=== PATIENT | male | born 1955 | race Caucasian/White ===

== ENCOUNTER 2018-11-05 22:38 | Inpatient (IN) | payer BC, OTHER ==
[~2018-11-05] VITALS: Ht 185.4 cm; Wt 120.7 kg
[2018-11-05] MEDS ORDERED: predniSONE 20 MG TAB PO STA (23:08)
[2018-11-05] MEDS ORDERED: RT-ALBUTEROL/IPRATROPIUM 3 ML (DUONEB) VIAL INH STA (23:08)
--- NOTE | 2018-11-05 23:10 | ED Cough/URI ---
General Chief Complaint: Respiratory Problems Stated Complaint: CONGESTION, SOB, HISTORY OF PE History of Present Illness Date Seen by Provider: Nov 05, 2018 Time Seen by Provider: 22:59 This is a 63-year-old man with a history of pulmonary embolus on Coumadin here for a cough. Last night he started to have some postnasal drip, overnight he started to have a sore throat. He then developed a cough today with some wheezing and shortness of breath. No chest or back pain. No lightheadedness or nausea or diaphoresis. No leg swelling. No hemoptysis. No fever or chills. No myalgias. No headache. Allergies and Home Medications Allergies Coded Allergies: No Known Drug Allergies (Unverified , 11/05/18) Home Medications Lisinopril/Hydrochlorothiazide 1 Each Tablet, 1 EACH PO DAILY, (Reported) Simvastatin 10 Mg Tablet, 10 MG PO DAILY, (Reported) Warfarin Sodium 5 Mg Tablet, 5 MG PO UD, (Reported) Warfarin Sodium 2.5 Mg Tablet, 2.5 MG PO UD, (Reported) Patient Home Medication List Home Medication List Reviewed: Yes Review of Systems Review of Systems Constitutional: no symptoms reported EENTM: see HPI Respiratory: see HPI Cardiovascular: no symptoms reported Gastrointestinal: no symptoms reported Genitourinary: no symptoms reported Musculoskeletal: no symptoms reported Skin: no symptoms reported Psychiatric/Neurological: No Symptoms Reported Hematologic/Lymphatic: No Symptoms Reported Immunological/Allergic: no symptoms reported Past Glzrbpf-Mofwub-Eznxgn Hx Patient Social History Recent Foreign Travel: No Contact w/Someone Who Travel: No Physical Exam Vital Signs - First Documented 11/05/18 11/05/18 22:45 22:47 Temp 97.2 Pulse 116 Resp 22 B/P (MAP) 157/83 (107) Pulse Ox 90 O2 Delivery Room Air O2 Flow Rate 2.00 FiO2 93 Capillary Refill : Height: '" Weight: lbs. oz. kg; BMI Method: General Appearance: no apparent distress HEENT: other (moist mucous membranes, pharynx mildly erythematous without edema or exudate) Neck: supple Respiratory: other (good air exchange with moderate bilateral expiratory wheezes) Cardiovascular: normal peripheral pulses, regular rate, rhythm, no edema Gastrointestinal: non tender, soft Neurologic/Psychiatric: no motor/sensory deficits, alert, normal mood/affect, oriented x 3; No abnormal gait Skin: warm/dry Progress/Results/Core Measures Suspected Sepsis SIRS Temperature: Pulse: Respiratory Rate: Laboratory Tests 11/05/18 23:25: White Blood Count 9.3 Blood Pressure / Mean: Laboratory Tests 11/05/18 23:07: Creatinine 0.77, Total Bilirubin 1.2H 11/05/18 23:25: INR Comment 2.1H, Platelet Count 188 Results/Orders Lab Results Laboratory Tests Test 11/05/18 23:07 11/05/18 23:25 11/06/18 04:26 Range/Units Sodium Level 139 135-145 MMOL/L Potassium Level 4.2 3.6-5.0 MMOL/L Chloride Level 103 98-107 MMOL/L Carbon Dioxide Level 22 21-32 MMOL/L Anion Gap 14 5-14 MMOL/L Blood Urea Nitrogen 13 7-18 MG/DL Creatinine 0.77 0.60-1.30 MG/DL Estimat Glomerular Filtration Rate > 60 BUN/Creatinine Ratio 17 Glucose Level 119 H 70-105 MG/DL Calcium Level 8.7 8.5-10.1 MG/DL Corrected Calcium 8.5 8.5-10.1 MG/DL Total Bilirubin 1.2 H 0.1-1.0 MG/DL Aspartate Amino Transf (AST/SGOT) 21 5-34 U/L Alanine Aminotransferase (ALT/SGPT) 20 0-55 U/L Alkaline Phosphatase 99 40-136 U/L Troponin T 24 H <=15 NG/L Pro-B-Type Natriuretic Peptide 169.5 H <75.0 PG/ML Total Protein 7.3 6.4-8.2 GM/DL Albumin 4.3 3.2-4.5 GM/DL White Blood Count 9.3 4.3-11.0 10^3/uL Red Blood Count 5.54 4.35-5.85 10^6/uL Hemoglobin 15.5 13.3-17.7 G/DL Hematocrit 48 40-54 % Mean Corpuscular Volume 87 80-99 FL Mean Corpuscular Hemoglobin 28 25-34 PG Mean Corpuscular Hemoglobin Concent 32 32-36 G/DL Red Cell Distribution Width 12.9 10.0-14.5 % Platelet Count 188 130-400 10^3/uL Mean Platelet Volume 9.2 7.4-10.4 FL Prothrombin Time 23.7 H 12.2-14.7 SEC INR Comment 2.1 H 0.8-1.4 Activated Partial Thromboplast Time 34 24-35 SEC My Orders Orders - SHANNEN CASEY DO Ekg Tracing (11/05/18 22:51) Comprehensive Metabolic Panel (11/05/18 22:51) Protime With Inr (11/05/18 22:51) Partial Thromboplastin Time (11/05/18 22:51) O2 (11/05/18 22:51) Monitor-Rhythm Ecg Trace Only (11/05/18 22:51) Saline Lock/Iv-Start (11/05/18 22:51) Cbc No Diff (11/05/18 22:51) Troponin T (11/05/18 22:51) Probnp Fs (11/05/18 22:51) Chest Pa/Lat (2 View) (11/05/18 22:51) Albuterol/Ipra Inhalation Soln (Duoneb I (11/05/18 23:08) Prednisone Tablet (Deltasone Tablet) (11/05/18 23:08) Svn Small Volume Nebulizer (11/05/18 23:08) Levofloxacin 750 Mg/150 Ml Iv (Levaquin (11/05/18 23:58) Ct Angio Chest W (11/06/18 00:55) Iopamidol 61% Injection (Isovue 300 61% (11/06/18 01:00) Sodium Chloride Flush (Catheter Flush Sy (11/06/18 01:00) Acetaminophen Tablet (Tylenol Tablet) (11/06/18 01:42) Albuterol Pre-Mix Nebs (Rt) (Proventil (11/06/18 01:49) Svn Small Volume Nebulizer (11/06/18 01:49) Troponin T (11/06/18 04:15) Ekg Tracing (11/06/18 04:15) Influenza A And B Antigens (11/06/18 04:56) Medications Given in ED Current Medications Medications Dose Ordered Sig/Roseline Route Start Time Stop Time Status Last Admin Dose Admin Iopamidol 50 ml ONCE ONCE IV 11/06/18 01:00 11/06/18 01:38 DC 11/06/18 01:18 50 ML Sodium Chloride 10 ml NEEDED PRN IV 11/06/18 01:00 11/06/18 01:20 10 ML Vital Signs/I&O 11/05/18 11/05/18 22:45 22:47 Temp 97.2 Pulse 116 Resp 22 B/P (MAP) 157/83 (107) Pulse Ox 90 O2 Delivery Room Air Nasal Cannula O2 Flow Rate 2.00 FiO2 93 Capillary Refill : Progress Note #1: Progress Note This is a 63-year-old man with a history of PE on Coumadin here for a cough. He has audible wheezing. He does have a history of childhood asthma. We will treat with bronchodilators and steroids. He is otherwise in no acute distress. He has no other symptoms that suggest pulmonary embolus. He was mildly hypoxic on room air but this improves with nasal cannula oxygen. We will obtain ECG, chest x-ray , labs including a troponin and BNP. We will continue to monitor patient. Progress Note #2: Progress Note INR is therapeutic. There is persistent tachycardia and mild hypoxia which, despite history which is not suggestive, was concerning for possible superimposed pulmonary embolus and a CT angiogram was obtained. Showed no central pulmonary embolus although contrast was reportedly mistimed. Patient was given a second albuterol nebulizer treatment. He was feeling improvement in his breathing. We will continue to monitor. Progress Note #3: Progress Note Pt and his are concerned re: insurance covering hospital stay, there are certain hospitals they believe are not covered, they believe is ok. I attempted to call their insurance company for them but offices are closed. I also asked transfer station operator to see if she could find out for sure. In the meantime pt is having persistent hypoxia with SpO2 on RA down to 88%, HR still 127 at this time, BP 117/70, I do feel transport should not be delayed further and pt and his are agreeable. He is in NAD and lungs are clear. BNP is elevated but no obvious signs of volume overload and BP low normal so I am deferring diuresis at this time. Pt will likely benefit from hospitalization in order to have echocardiogram and cardiology consult to determine extent of contribution to presentation from cardiac etiology and to guide further therapy. Progress Note #4: Progress Note [facility] called to notify us that a bed became available. This is patient's preference. Patient was accepted for transfer by Dr. Corrales at approximately 4:40 AM. ECG EKG : Comment 20/11/16: Sinus tachycardia rate of 114. Possible left atrial enlargement. Right bundle branch block. Diagnostic Imaging Diagonstic Imaging: Xray Comments EP interpretation: Trachea is midline allowing for mild rotation. Cardiomediastinal silhouette is within normal limits, diaphragmatic borders are sharp. No obvious bony abnormalities. No pneumothoraces. The interstitium appears prominent, with central vascular congestion. Reviewed: Reviewed by Me Departure Impression Primary Impression: Hypoxia Additional Impressions: Wheezing Elevated brain natriuretic peptide (BNP) level Elevated troponin Coronary artery disease Qualified Codes: I25.10 - Atherosclerotic heart disease of [place] coronary artery without angina pectoris; I25.84 - Coronary atherosclerosis due to calcified coronary lesion Disposition: XFER SHT-TRM HOSP Condition: Stable (guarded) Transfer Time Spoke to Accepting Phy: 04:40 Transfer Facility: [facility], accepted by Dr. Corrales Method of Transfer: EMS Departure-Patient Inst. Referrals: RITA RADFORD (PCP) Primary Care Physician SHANNEN CASEY DO Nov 05, 2018 23:10
[2018-11-05] MEDS ORDERED: WARF5TAB PO (23:37)
[2018-11-05] MEDS ORDERED: SIMV10TA3 PO (23:37)
[2018-11-05] MEDS ORDERED: LISI1TAB6 PO (23:37)
[2018-11-05] MEDS ORDERED: WARF2.5T82 PO (23:37)
[2018-11-05 23:51] LABS: ALANINE AMINOTRANSFERASE 20 U/L (0-55); ALBUMIN 4.3 GM/DL (3.2-4.5); ALKALINE PHOSPHATASE 99 U/L (40-136); BILIRUBIN,TOTAL 1.2 MG/DL (0.1-1.0); BUN/CREATININE RATIO 17; CALCIUM 8.7 MG/DL (8.5-10.1); CARBON DIOXIDE 22 MMOL/L (21-32); CHLORIDE 103 MMOL/L (98-107); CREATININE SERUM 0.77 MG/DL (0.60-1.30); GFR ESTIMATED > 60; GLUCOSE 119 MG/DL (70-105); POTASSIUM 4.2 MMOL/L (3.6-5.0); SODIUM 139 MMOL/L (135-145); TOTAL PROTEIN 7.3 GM/DL (6.4-8.2)
[2018-11-05 23:54] LABS: INR 2.1 (0.8-1.4); PROTHROMBIN TIME PATIENT 23.7 SEC (12.2-14.7)
[2018-11-05] MEDS ORDERED: LEVOFLOXACIN 750 MG/150 ML IV 150 ML IV STA (23:58)
[2018-11-06 00:04] LABS: WHITE BLOOD COUNT 9.3 10^3/uL (4.3-11.0)
[2018-11-06 00:05] LABS: HEMOGLOBIN 15.5 G/DL (13.3-17.7); MEAN PLATELET VOLUME 9.2 FL (7.4-10.4); RED CELL DISTRIBUTION WIDTH 12.9 % (10.0-14.5)
[2018-11-06] MEDS ORDERED: IOPAMIDOL 61% 100 ML (ISOVUE 300) VIAL IV ONE (01:00)
[2018-11-06] MEDS ORDERED: CATHETER FLUSH 10 ML SYR IV PRN (01:00)
[2018-11-06] MEDS ORDERED: ACETAMINOPHEN 500 MG TAB (TYLENOL) PO STA (01:42)
[2018-11-06] MEDS ORDERED: RT-ALBUTEROL SULF 2.5 MG/3 ML PRE-MIX VIAL INH STA (01:49)
--- NOTE | 2018-11-06 06:11 | NUR ---
Report called to Fany WILSON
--- NOTE | 2018-11-06 06:18 | NUR ---
[facility] leaves with patient.
--- NOTE | 2018-11-06 06:33 | Diagnostic Imaging Report ---
EXAMINATION: Chest, frontal and lateral views. INDICATION: Dry cough and wheezing. COMPARISON: None available. FINDINGS: The lungs are clear. There is prominence of the central pulmonary vasculature, without overt edema. The cardiomediastinal silhouette is normal. No pneumothorax or pleural effusion. No acute osseous abnormality. IMPRESSION: No acute chest disease. Dictated by: Dictated on workstation # [id number]
--- NOTE | 2018-11-06 07:05 | NUR ---
MAYELIN WOLF admitted to room 430-1, with an admitting diagnosis of BRONCHITIS, HYPOXIA, ELEVATED BNP , on 11/06/18 from [facility] via [facility], accompanied by EMS. MAYELIN WOLF introduced to surroundings, call light, bed controls, phone, TV, temperature control, lights, meal times, smoking policy, visitor policy, side rail policy, bathrooms and showers. Patient Rights given to patient in the handbook. MAYELIN WOLF verbalizes understanding that [facility] is not responsible for the loss or damage to any personal effects or valuables that are kept in the patients posession during their hospitalization. MAYELIN WOLF verbalizes understanding of Interdisciplinary Patient Education. Patient and/or family were informed about the Rapid Response Team and its purpose.
--- NOTE | 2018-11-06 09:35 | History & Physical-Hospitalist ---
History of Present Illness HPI/Chief Complaint Chief complaint: Shortness of breath and wheezing HPI: This is a 63yoWM with a prior history of pulmonary emboli with a large clot burden ten years ago and a saddle pulmonary emboli four years ago that had no genetic basis of hypercoagulable state who had seen Dr. Romero in [facility] and Luisa Prasad and had not established with a new PCP since that time. He reports that he presented to the [facility] ER with hypoxia and wheezing and was found to have major hypoxia and acute respiratory failure and there was a concern whether he had pneumonia vs. recurrent PE so CT scan was obtained revealing no evidence of any type of recurrent PE with INR of 2.1. He is requiring oxygen. He had not had any recent echocardiogram or cardiology evaluation or pulmonology evaluation due to the significant clot burden in the past with the pulmonary emboli. I will check ABG and consult with Dr. Simental and Dr. Olivo and obtain echocardiogram and evaluate from there the next step but he will likely need home O2 at [place] and he was agreeable to that possibility. Family was updated on all the details as far as the future work up and other consultants. Source: patient, RN/MD, old records Exam Limitations: no limitations Date Seen 11/06/18 Time Seen by a Provider: 09:50 Attending Physician Marco A Corrales MD PCP No,Local Physician Referring Physician Date of Admission Nov 06, 2018 at 06:48 Home Medications & Allergies Home Medications Reviewed patient Home Medication Reconciliation performed by pharmacy medication reconciliations ski technician and/or nursing. Patients Allergies have been reviewed. 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) Alcohol Use: Denies Use Recreational Drug Use: No Smoking Status: Never a Smoker 2nd Hand Smoke Exposure: No Recent Foreign Travel: No Contact w/other who traveled: No Recent Hopitalizations: No Recent Infectious Disease Expo: No Immunizations Up To Date Tetanus Booster (TDap): Unknown Date of Influenza Vaccine: Jun 03, 2018 Seasonal Allergies Seasonal Allergies: No Past Medical History Surgeries: Tonsillectomy Respiratory: Pulmonary Embolism Currently Using CPAP: No Currently Using BIPAP: No Cardiac: Hypertension Sexually Transmitted Disease: No HIV/AIDS: No History of Blood Disorders: No Adverse Reaction to Blood Jorgensen: No Review of Systems Constitutional: see HPI EENTM: no symptoms reported Respiratory: dyspnea on exertion, wheezing Cardiovascular: no symptoms reported Gastrointestinal: no symptoms reported Genitourinary: no symptoms reported Musculoskeletal: no symptoms reported Skin: no symptoms reported Psychiatric/Neurological: No Symptoms Reported All Other Systems Reviewed Negative Unless Noted: Yes Physical Exam Physical Exam Vital Signs Vital Signs - First Documented 11/05/18 11/05/18 22:45 22:47 Temp 97.2 Pulse 116 Resp 22 B/P (MAP) 157/83 (107) Pulse Ox 90 O2 Delivery Room Air O2 Flow Rate 2.00 FiO2 93 Capillary Refill : Less Than 3 Seconds Height, Weight, BMI Height: 6'1.00" Weight: 265lbs. oz. 120.606696xd; BMI Method:Stated General Appearance: WD/WN, Chronically ill, Mild Distress Eyes: Right Eye Normal Inspection, Right Eye PERRL HEENT: PERRL/EOMI, Normal ENT Inspection, Pharynx Normal, Moist Mucous Membranes Neck: Full Range of Motion, Normal Inspection, Non Tender Respiratory: Chest Non Tender, No Accessory Muscle Use, No Respiratory Distress , Crackles, Decreased Breath Sounds, Wheezing Cardiovascular: Regular Rate, Rhythm, No Edema, No Gallop, No JVD, No Murmur, Normal Peripheral Pulses Gastrointestinal: Normal Bowel Sounds, No Organomegaly, No Pulsatile Mass, Non Tender, Soft Back: Normal Inspection, No CVA Tenderness, No Vertebral Tenderness Extremity: Normal Capillary Refill, Normal Inspection, Normal Range of Motion, Non Tender, No Calf Tenderness, No Pedal Edema Neurologic/Psychiatric: Alert, Oriented x3, No Motor/Sensory Deficits, Normal Mood/Affect Skin: Normal Color, Warm/Dry Lymphatic: No Adenopathy Results Results/Procedures Labs Laboratory Tests 11/05/18 23:07 11/05/18 23:25 11/06/18 11:55 Patient resulted labs reviewed. Assessment/Plan Admission Diagnosis Assessment: Respiratory insufficiency Wheezing Hypoxemia Recurrent PE's in past HTN Tachycardia Plan: O2 Nebs Pulmonology and Cardiology consultations are appreciated Coumadin to be maintained in meantime ECHO Admission Status: Inpatient Order (span 2 midnights) Reason for Inpatient Admission: Severe hypoxia with tachycardia and h/o recurrent massive clot load PE's will require 3 days of inpt Diagnosis/Problems Diagnosis/Problems (1) Hypoxia Status: Acute (2) Elevated brain natriuretic peptide (BNP) level Status: Acute (3) Elevated troponin Status: Acute (4) Wheezing Status: Acute (5) Hx pulmonary embolism Status: Chronic (6) Hypertension Status: Chronic Qualifiers: Hypertension type: essential hypertension Qualified Codes: I10 - Essential (primary) hypertension KATHERINE REYNOSO DO Nov 06, 2018 09:35
--- NOTE | 2018-11-06 09:39 | Diagnostic Imaging Report ---
PROCEDURE: CT angiography of the chest with contrast. TECHNIQUE: Multiple contiguous axial images were obtained through the chest after uneventful bolus administration of intravenous contrast. 2D reconstructed CTA MIP acquisitions were also performed. INDICATION: Shortness of breath. Cough. Positive d-dimer. Evaluate for pulmonary embolism. COMPARISONS: None FINDINGS: CT ANGIOGRAM: The examination is nondiagnostic for evaluation of pulmonary embolism given the predominantly arterial phase of imaging and minimal contrast in the pulmonary arteries. Normal caliber pulmonary arteries. No acute aortic abnormality seen on this study performed without cardiac gating. TRACHEA AND MAIN BRONCHI: Patent without evidence of tracheal or endobronchial lesion. LUNGS AND PLEURA: Mild dependent subsegmental atelectasis in the lower lobes. There is also mild scarring or atelectasis in the right middle lobe and lingula. No consolidation or pulmonary mass. No pleural effusion or pneumothorax. MEDIASTINUM AND CALLI: Visualized thyroid gland is normal. No mediastinal or hilar lymphadenopathy. Esophagus is nondistended. HEART AND VESSELS: Heart is normal in size. No pericardial effusion. Atherosclerotic calcification involves the aorta and its branches, including the coronary arteries. There is ectasia of the ascending thoracic aorta, which measures up to 4.1 cm in diameter. DIAPHRAGM AND UPPER ABDOMEN: There is a low-attenuation lesion in the posterior right hepatic lobe superiorly, which measures less than 20 Hounsfield units, consistent with a cyst. The diaphragm and visualized upper abdomen are otherwise unremarkable. CHEST WALL: Unremarkable. BONES: No acute osseous abnormality. IMPRESSION: 1. Essentially nondiagnostic for pulmonary embolism given arterial phase of imaging. 2. Ectasia of the ascending aorta, which measures up to 4.2 cm in diameter. 3. Coronary artery calcifications. Findings are in agreement with initial teleradiology report. Dictated by: Dictated on workstation # [id number]
[2018-11-06] MEDS: ACETAMINOPHEN 325 MG TABLET PO PRN ×2 (09:41→17:23)
[2018-11-06] MEDS ORDERED: SIMV20TA3 PO (10:04)
[2018-11-06] MEDS ORDERED: CETI10TA17 PO (10:05)
--- NOTE | 2018-11-06 10:06 | NUR ---
SPOKE WITH THE PATIENT ABOUT HIS MEDICATIONS. HE HAD HIS BOTTLES WITH HIM AND WE WENT OVER THE EXT MED HX. HIS LISINOPRIL HCTZ IS WRITTEN 1 DAILY HOWEVER HE STATES HE TAKES 1/2 TAB DAILY. HIS WARFARIN IS WRITTEN 5MG DAILY HOWEVER HE STATES HIS CURRENT DOSE IS 5MG Sun FRI AND 2.5MG ALL OTHER DAYS OF THE WEEK. HE TAKES ZYRTEC OTC HS.
--- NOTE | 2018-11-06 11:53 | Pulmonary Consultation ---
History of Present Illness History of Present Illness Date of Consultation 11/06/18 11:53 Time Seen by Provider: 10:41 Date of Admission History of Present Illness 63yo with hx of PE 4yrs ago pt was treated with anticoagulation however it was not continued after a hypercoagulable workup was negative. PT was found to have another acute PE while in ED. I am consulted for pulmonary management. Allergies and Home Medications Allergies Coded Allergies: No Known Drug Allergies (Unverified , 11/06/18) Home Medications Albuterol Sulfate 2.5 Mg/3 Ml Vial.neb, 2.5 MG INH QID Prescribed by: KATHERINE REYNOSO on 11/08/18 1157 Aspirin 81 Mg Tab.chew, 81 MG PO DAILY Prescribed by: DEVAN HERNANDEZ on 11/08/18 1025 Cetirizine HCl 10 Mg Tablet, 10 MG PO HS, (Reported) Lisinopril/Hydrochlorothiazide 1 Each Tablet, 0.5 TAB PO HS, (Reported) Metoprolol Succinate 25 Mg Tab.er.24h, 25 MG PO DAILY Prescribed by: DEVAN HERNANDEZ on 11/08/18 1025 Simvastatin 20 Mg Tablet, 20 MG PO HS, (Reported) Warfarin Sodium 5 Mg Tablet, 5 MG PO MoWeFr@1800, (Reported) Warfarin Sodium 2.5 Mg Tablet, 2.5 MG PO SuTuThSa@1800, (Reported) TAKES 1/2 (5MG) TABLET Past Ggxyaio-Cyacdi-Lcbwdu Hx Patient Social History Alcohol Use: Denies Use Recreational Drug Use: No Smoking Status: Never a Smoker 2nd Hand Smoke Exposure: No Recent Foreign Travel: No Contact w/Someone Who Travel: No Recent Infectious Disease Expo: No Recent Hopitalizations: No Physical Abuse: No Sexual Abuse: No Mistreated: No Fear: No Immunizations Up To Date Tetanus Booster (TDap): Unknown Date of Influenza Vaccine: Jun 19, 2018 Seasonal Allergies Seasonal Allergies: No Past Medical History Surgeries: Yes Tonsillectomy Respiratory: Yes Asthma, Pulmonary Embolism Currently Using CPAP: No Currently Using BIPAP: No Cardiac: Yes Hypertension Neurological: No Sexually Transmitted Disease: No HIV/AIDS: No Genitourinary: No Gastrointestinal: No Musculoskeletal: No Endocrine: No HEENT: No Cancer: No Psychosocial: No Integumentary: No Blood Disorders: No Adverse Reaction/Blood Tranf: No Review of Systems Time Seen by Provider: 10:56 Constitutional: Sweats, Weakness, Malaise, Other; No: Fever, Chills ENT: Nose congestion Respiratory: Cough, Dry, Shortness of breath, SOB with excertion; No: Wheezing , Hemoptysis Cardiovascular: Chest Pain, Palpitations, Orthopnea, Paroxysmal Noc. Dyspnea, Edema, Lt Headedness Gastrointestinal: No: Nausea, Vomiting, Abdominal Pain, Diarrhea, Constipation , Melena, Hematochezia, Other Genitourinary: No Dysuria, No Frequency, No Incontinence, No Hematuria, No Retention, No Other Neurological: Weakness, Confusion Sepsis Event Evaluation Height, Weight, BMI Height: 6'1.00" Weight: 265lbs. oz. 120.180641tc; BMI Method:Stated Exam Exam Vital Signs Date Time Temp Pulse Resp B/P (MAP) Pulse Ox O2 Delivery O2 Flow Rate FiO2 11/06/18 08:09 93 Nasal Cannula 1.50 11/06/18 06:18 98.5 115 20 132/62 (85) 93 Room Air 11/05/18 22:47 Nasal Cannula 2.00 93 11/05/18 22:45 97.2 116 22 157/83 (107) 90 Room Air I & O 11/06/18 07:00 Intake Total 150 ml Balance 150 ml Height & Weight Height: 6'1.00" Weight: 265lbs. oz. 120.580620en; BMI Method:Stated General Appearance: Anxious, Moderate Distress HEENT: PERRL/EOMI, Normal ENT Inspection, Pharynx Normal Neck: Full Range of Motion, Normal Inspection, Supple Respiratory: Chest Non Tender, Accessory Muscle Use, Crackles, Decreased Breath Sounds Capillary Refill: Less Than 3 Seconds Gastrointestinal: non tender, soft Extremity: Normal Capillary Refill, Normal Inspection, No Pedal Edema Neurologic/Psychiatric: Alert, Oriented x3 Skin: Normal Color, Warm/Dry Lymphatic: No Adenopathy Results Lab Laboratory Tests 11/05/18 23:07 11/05/18 23:25 Assessment/Plan Assessment/Plan Hypoxia with hx of PE -Check ABG -OXygen -Check echo -Ct scan reviewed Sinus tach -stat EKG -Cardiology consulted HAL JENKINS DO Nov 06, 2018 11:53
[2018-11-06 12:00] VITALS: BP 130/80
[2018-11-06 12:00] LABS: BASOPHILS % (AUTO) 0 % (0-10); EOSINOPHILS % (AUTO) 0 % (0-10); HEMATOCRIT 45 % (40-54); HEMOGLOBIN 15.2 G/DL (13.3-17.7); LYMPHOCYTES # (AUTO) 0.4 X 10^3 (1.0-4.0); LYMPHOCYTES % (AUTO) 5 % (12-44); MEAN CORPUSCULAR HEMOGLOBIN 29 PG (25-34); MEAN CORPUSCULAR HGB CONC 34 G/DL (32-36); MEAN CORPUSCULAR VOLUME 85 FL (80-99); MEAN PLATELET VOLUME 9.2 FL (7.4-10.4); MONOCYTES # (AUTO) 0.6 X 10^3 (0.0-1.0); MONOCYTES % (AUTO) 8 % (0-12); NEUTROPHILS % (AUTO) 88 % (42-75); PLATELET COUNT 188 10^3/uL (130-400); RED CELL DISTRIBUTION WIDTH 13.4 % (10.0-14.5); WHITE BLOOD COUNT 7.9 10^3/uL (4.3-11.0)
--- NOTE | 2018-11-06 12:00 | Consultation-Cardiology ---
HPI-Cardiology Cardiology Consultation: Date of Consultation 11/06/18 Time Seen by a Provider: 11:40 Date of Admission 11-06-18 Attending Physician Marco A Corrales MD Admitting Physician No,Local Physician Consulting Physician Walter Simental MD HPI: Chief Complaint: Dyspnea Tachycardia Mr. Wolf is a 63 year old male admitted to [facility] from [facility] ED. He reports he has had post nasal drainage for the last few days with associated sore throat. He went to the ED in [facility] where he had mild Trop T elevation. He was also noted to be tachycardic. He was transferred to [facility]. He denies any c/ o CP. He reports he has had some mild exertional dyspnea which started approx 24 hours ago. He reports a feeling of a fast heartbeat while in the ED at [facility]. No c/o syncope or near syncope. No c/o LE swelling. No c/o n/v/d. No c/o fever or chills. Review of Systems-Cardiology Review of Systems Constitutional: No chills, No fever, No malaise Eyes: No vision change Ears/Nose/Throat: No epistaxis, No recent hearing loss Respiratory: As described under HPI Cardiovascular: As described under HPI Gastrointestinal: No constipation, No diarrhea, No nausea, No vomiting Genitourinary: No dysuria, No hematuria Musculoskeletal: no symptoms reported Skin: No rash, No ulcerations Psychiatric/Neurological: No seizure, No focal weakness, No syncope Hematologic: No bleeding abnormalities [id number] Hx Patient Social History Alcohol Use: Denies Use Recreational Drug Use: No Smoking Status: Never a Smoker 2nd Hand Smoke Exposure: No Recent Foreign Travel: No Recent Infectious Disease Expo: No Hospitalization with Isolation: Denies Immunizations Up To Date Tetanus Booster (TDap): Unknown Date of Influenza Vaccine: Jun 19, 2018 Past Medical History PMH As described under Assessment. Family Medical History Family Medical History: He reports his mother and father both had HTN. He reports his father had a AAA without rupture. Allergies and Home Medications Allergies Coded Allergies: No Known Drug Allergies (Unverified , 11/06/18) Home Medications Cetirizine HCl 10 Mg Tablet, 10 MG PO HS, (Reported) Lisinopril/Hydrochlorothiazide 1 Each Tablet, 0.5 TAB PO HS, (Reported) Simvastatin 20 Mg Tablet, 20 MG PO HS, (Reported) Warfarin Sodium 5 Mg Tablet, 5 MG PO MoWeFr@1800, (Reported) Warfarin Sodium 2.5 Mg Tablet, 2.5 MG PO SuTuThSa@1800, (Reported) TAKES 1/2 (5MG) TABLET Patient Home Medication List Home Medication List Reviewed: Yes Physical Exam-Cardiology Physical Exam Vital Signs/I&O 11/07/18 11/07/18 11/07/18 11/07/18 00:00 01:00 04:46 06:59 Temp 98.8 98.4 Pulse 93 68 76 88 Resp 18 16 B/P (MAP) 114/62 (79) 112/58 (76) Pulse Ox 91 92 O2 Delivery Nasal Cannula Nasal Cannula O2 Flow Rate 4.00 4.00 11/06/18 23:59 Intake Total 1760 ml Balance 1760 ml Capillary Refill : Less Than 3 Seconds Constitutional: AAO x 3, well-developed, well-nourished HEENT: PERRL, hearing is well preserved, oral hygience is good Neck: No carotid bruit; carotid pulses are 2 + bilaterally Respiratory: No accessory muscle use, No respiratory distress; chest expansion is symmetric, chest is bilaterally symmetric, other (coarse RLL) Cardiovascular: No JVD; tachycardia, S1 and S2, systolic murmur Gastrointestinal: No tender; soft, round, audible bowel sounds Rectal: deferred Extremities: no lower extremity edema bilateral Neurologic/Psychiatric: grossly intact, power is 5/5 both on sides Skin: No rash, No ulcerations Data Review Labs Laboratory Tests 11/06/18 11:55: White Blood Count 7.9, Red Blood Count 5.33, Hemoglobin 15.2, Hematocrit 45, Mean Corpuscular Volume 85, Mean Corpuscular Hemoglobin 29, Mean Corpuscular Hemoglobin Concent 34, Red Cell Distribution Width 13.4, Platelet Count 188, Mean Platelet Volume 9.2, Neutrophils (%) (Auto) 88H, Lymphocytes (%) (Auto) 5L , Monocytes (%) (Auto) 8, Eosinophils (%) (Auto) 0, Basophils (%) (Auto) 0, Neutrophils # (Auto) 7.0, Lymphocytes # (Auto) 0.4L, Monocytes # (Auto) 0.6, Eosinophils # (Auto) 0.0, Basophils # (Auto) 0.0, Neutrophils % (Manual) 76, Lymphocytes % (Manual) 10, Monocytes % (Manual) 4, Eosinophils % (Manual) 1, Basophils % (Manual) 0, Band Neutrophils 9, Elliptocytes SLIGHT, Prothrombin Time 28.4H, INR Comment 2.7H, Sodium Level 135, Potassium Level 3.7, Chloride Level 102, Carbon Dioxide Level 22, Anion Gap 11, Blood Urea Nitrogen 11, Creatinine 0.81, Estimat Glomerular Filtration Rate > 60, BUN/Creatinine Ratio 14, Glucose Level 98, Calcium Level 9.6, Corrected Calcium 9.4, Total Bilirubin 0.7, Aspartate Amino Transf (AST/SGOT) 22, Alanine Aminotransferase (ALT/SGPT) 22, Alkaline Phosphatase 88, Troponin I 0.028, B-Type Natriuretic Peptide 55.5, Total Protein 7.3, Albumin 4.3 11/06/18 12:35: Blood Gas Puncture Site LEFT RADIAL, Blood Gas Patient Temperature 99.2, Arterial Blood pH 7.45H, Arterial Blood Partial Pressure CO2 35, Arterial Blood Partial Pressure O2 56L, Arterial Blood HCO3 24, Arterial Blood Total CO2 25.4, Arterial Blood Oxygen Saturation 92L, Arterial Blood Base Excess 0.8, Nick Test YES-POS, Blood Gas Ventilator Setting NO, Blood Gas Inspired Oxygen ROOM AIR 11/06/18 13:30: Troponin I < 0.028, Thyroid Stimulating Hormone (TSH) 0.90 11/07/18 06:45: Prothrombin Time 30.2H, INR Comment 2.9H 11/07/18 06:48: White Blood Count 5.6, Red Blood Count 4.92, Hemoglobin 13.9, Hematocrit 43, Mean Corpuscular Volume 86, Mean Corpuscular Hemoglobin 28, Mean Corpuscular Hemoglobin Concent 33, Red Cell Distribution Width 14.2, Platelet Count 180, Mean Platelet Volume 9.4, Neutrophils (%) (Auto) 65, Lymphocytes (%) (Auto) 13, Monocytes (%) (Auto) 15H, Eosinophils (%) (Auto) 7, Basophils (%) (Auto) 0, Neutrophils # (Auto) 3.6, Lymphocytes # (Auto) 0.8L, Monocytes # (Auto) 0.8, Eosinophils # (Auto) 0.4H, Basophils # (Auto) 0.0, Sodium Level 139, Potassium Level 3.9, Chloride Level 107, Carbon Dioxide Level 23, Anion Gap 9, Blood Urea Nitrogen 19H, Creatinine 0.82, Estimat Glomerular Filtration Rate > 60, BUN/ Creatinine Ratio 23, Glucose Level 98, Calcium Level 8.5, Corrected Calcium 8.7 , Total Bilirubin 0.8, Aspartate Amino Transf (AST/SGOT) 23, Alanine Aminotransferase (ALT/SGPT) 22, Alkaline Phosphatase 77, Total Protein 6.2L, Albumin 3.8 Microbiology 11/06/18 Influenza Types A,B Antigen (TRUE) - Final, Complete Radiology NAME: MAYELIN WOLF [facility] REC#: [id number] PT STATUS: ADM IN : 1955 PHYSICIAN: SHANNEN CASEY DO ADMIT DATE: 11/06/18 Draft Date of Exam:11/06/18 CT ANGIO CHEST W PROCEDURE: CT angiography of the chest with contrast. TECHNIQUE: Multiple contiguous axial images were obtained through the chest after uneventful bolus administration of intravenous contrast. 2D reconstructed CTA MIP acquisitions were also performed. INDICATION: Shortness of breath. Cough. Positive d-dimer. Evaluate for pulmonary embolism. COMPARISONS: None FINDINGS: CT ANGIOGRAM: The examination is nondiagnostic for evaluation of pulmonary embolism given the predominantly arterial phase of imaging and minimal contrast in the pulmonary arteries. Normal caliber pulmonary arteries. No acute aortic abnormality seen on this study performed without cardiac gating. TRACHEA AND MAIN BRONCHI: Patent without evidence of tracheal or endobronchial lesion. LUNGS AND PLEURA: Mild dependent subsegmental atelectasis in the lower lobes. There is also mild scarring or atelectasis in the right middle lobe and lingula. No consolidation or pulmonary mass. No pleural effusion or pneumothorax. MEDIASTINUM AND CALLI: Visualized thyroid gland is normal. No mediastinal or hilar lymphadenopathy. Esophagus is nondistended. HEART AND VESSELS: Heart is normal in size. No pericardial effusion. Atherosclerotic calcification involves the aorta and its branches, including the coronary arteries. There is ectasia of the ascending thoracic aorta, which measures up to 4.1 cm in diameter. DIAPHRAGM AND UPPER ABDOMEN: There is a low-attenuation lesion in the posterior right hepatic lobe superiorly, which measures less than 20 Hounsfield units, consistent with a cyst. The diaphragm and visualized upper abdomen are otherwise unremarkable. CHEST WALL: Unremarkable. BONES: No acute osseous abnormality. IMPRESSION: 1. Essentially nondiagnostic for pulmonary embolism given arterial phase of imaging. 2. Ectasia of the ascending aorta, which measures up to 4.2 cm in diameter. 3. Coronary artery calcifications. Findings are in agreement with initial teleradiology report. Dictated on workstation # [id number] Dict: 11/06/18 09 Trans: 11/06/18 0938 [id number] Interpreted by: KRISTA ORDONEZ DO Electronically signed by: NAME: MAYELIN WOLF [facility] REC#: [id number] PT STATUS: DEP ER : 1955 PHYSICIAN: SHANNEN CASEY DO ADMIT DATE: 11/05/18/ER FS Draft Date of Exam:11/05/18 CHEST PA/LAT (2 VIEW) EXAMINATION: Chest, frontal and lateral views. INDICATION: Dry cough and wheezing. COMPARISON: None available. FINDINGS: The lungs are clear. There is prominence of the central pulmonary vasculature, without overt edema. The cardiomediastinal silhouette is normal. No pneumothorax or pleural effusion. No acute osseous abnormality. IMPRESSION: No acute chest disease. Dictated on workstation # [id number] Dict: 11/06/18 0548 Trans: 11/06/18 0632 [id number] Interpreted by: KRISTA ORDONEZ DO Electronically signed by: ECG Impression ECG Comment Sinus tachycardia with RBBB A/P-Cardiology Assessment/Admission Diagnosis Dyspnea of undetermined etiology Tachycardia Elevated Trop T x 2 at [facility] ED; troponin I at [facility] WNL CT of the chest on 11-06-18: Ectasia of the ascending aorta, which measures up to 4.2 cm in diameter H/O x 2 - first episode 11 years ago (completed one year of warfarin), second episode approx 4 years ago - has been maintained on warfarin since Chronic anticoagulation with warfarin - managed by his PCP HTN HLD - statin tx Discussion and Recomendations Echocardiogram today to eval structure and function Sinus tachycardia with HTN - add low dose BB Add low dose ASA Based on c/o, h/o and risk factors advise further coronary work up. Have discussed both non-invasive and invasive. They are considering and would like to decide once the speak with Dr. Simental Continue home medications Continue warfarin d/t h/o PE Monitor lab closely Further recs will be based on hospital course We would like to thank medical services for this consult I have spoken with he and his spouse and answered their questions Clinical Quality Measures DVT/VTE Risk/Contraindication: Risk Factor Score Per Nursin RFS Level Per Nursing on Admit: 4+=Very High DEVAN HERNANDEZ Nov 06, 2018 12:00
[2018-11-06 12:11] LABS: INR 2.7 (0.8-1.4); PROTHROMBIN TIME PATIENT 28.4 SEC (12.2-14.7)
[2018-11-06 12:19] LABS: ALANINE AMINOTRANSFERASE 22 U/L (0-55); ALBUMIN 4.3 GM/DL (3.2-4.5); ALKALINE PHOSPHATASE 88 U/L (40-136); BILIRUBIN,TOTAL 0.7 MG/DL (0.1-1.0); BUN/CREATININE RATIO 14; CALCIUM 9.6 MG/DL (8.5-10.1); CARBON DIOXIDE 22 MMOL/L (21-32); CHLORIDE 102 MMOL/L (98-107); CREATININE SERUM 0.81 MG/DL (0.60-1.30); GFR ESTIMATED > 60; GLUCOSE 98 MG/DL (70-105); POTASSIUM 3.7 MMOL/L (3.6-5.0); SODIUM 135 MMOL/L (135-145); TOTAL PROTEIN 7.3 GM/DL (6.4-8.2)
[2018-11-06 12:26] VITALS: BP 129/71
[2018-11-06] MEDS ORDERED: PATIENT MAY USE OWN MED,SINGLE MED PO SCH (12:30)
[2018-11-06 12:38] LABS: BAND NEUTROPHILS 9 %; BASOPHILS % (MANUAL) 0 %; ELLIPT/OVALOCYTES SLIGHT; EOSINOPHILS % (MANUAL) 1 %; LYMPHOCYTES % (MANUAL) 10 %; MONOCYTES % (MANUAL) 4 %; NEUTROPHILS % (MANUAL) 76 %
[2018-11-06 12:49] LABS: ABG BASE EXCESS 0.8 MMOL/L (-2.5-2.5); ABG OXYGEN SATURATION 92 % (94-100); ABG PCO2 35 MMHG (35-45); ABG PH 7.45 (7.37-7.43); ABG PO2 56 MMHG (79-93); ABG TCO2 25.4 MMOL/L (21.0-31.0); ALLENS TEST YES-POS
[2018-11-06 12:50] LABS: INSPIRED O2 ROOM AIR; PATIENT TEMP 99.2; VENTILATOR NO
[2018-11-06] MEDS: NS IV 1000 ML 1,000 ML IV SCH (13:01)
[2018-11-06] MEDS ORDERED: REGADENOSON 0.4 MG/5 ML SYR (LEXISCAN) IV ONE (14:00)
[2018-11-06 16:50] VITALS: BP 122/73
[2018-11-06] MEDS: warFARin 5 MG (COUMADIN) TAB PO SCH (17:24)
--- NOTE | 2018-11-06 19:00 | Consultation-Cardiology ---
HPI-Cardiology Cardiology Consultation: Date of Consultation 11/06/18 Time Seen by a Provider: 13:30 Date of Admission Attending Physician Marco A Corrales MD Admitting Physician No,Local Physician Consulting Physician NATALY HERNÁNDEZ MD, MA, FACP, FACC, [facility], CCDS Physician requesting consult: Dr Zamora HPI: Chief Complaint: Dyspnea Tachycardia Mr. Garcia is a 63 year old male admitted to [facility] from [facility] ED. He reports he has had post nasal drainage for the last few days with associated sore throat. He went to the ED in [facility] where he had mild Trop T elevation. He was also noted to be tachycardic. He was transferred to [facility]. He denies any c/ o CP. He reports he has had some mild exertional dyspnea which started approx 24 hours ago. He reports a feeling of a fast heartbeat while in the ED at [facility]. No c/o syncope or near syncope. No c/o LE swelling. No c/o n/v/d. No c/o fever or chills. Review of Systems-Cardiology Review of Systems Constitutional: No chills, No fever, No malaise Eyes: No vision change Ears/Nose/Throat: No epistaxis, No recent hearing loss Respiratory: As described under HPI Cardiovascular: As described under HPI Gastrointestinal: No constipation, No diarrhea, No nausea, No vomiting Genitourinary: No dysuria, No hematuria Musculoskeletal: no symptoms reported Skin: No rash, No ulcerations Psychiatric/Neurological: No seizure, No focal weakness, No syncope Hematologic: No bleeding abnormalities PBL-Vrmrks-Clgslc Hx Patient Social History Alcohol Use: Denies Use Recreational Drug Use: No Smoking Status: Never a Smoker 2nd Hand Smoke Exposure: No Recent Foreign Travel: No Recent Infectious Disease Expo: No Hospitalization with Isolation: Denies Immunizations Up To Date Tetanus Booster (TDap): Unknown Date of Influenza Vaccine: Jun 19, 2018 Past Medical History PMH As described under Assessment. Family Medical History Family Medical History: He reports his mother and father both had HTN. He reports his father had a AAA without rupture. Allergies and Home Medications Allergies Coded Allergies: No Known Drug Allergies (Unverified , 11/06/18) Home Medications Cetirizine HCl 10 Mg Tablet, 10 MG PO HS, (Reported) Lisinopril/Hydrochlorothiazide 1 Each Tablet, 0.5 TAB PO HS, (Reported) Simvastatin 20 Mg Tablet, 20 MG PO HS, (Reported) Warfarin Sodium 5 Mg Tablet, 5 MG PO MoWeFr@1800, (Reported) Warfarin Sodium 2.5 Mg Tablet, 2.5 MG PO SuTuThSa@1800, (Reported) TAKES 1/2 (5MG) TABLET Patient Home Medication List Home Medication List Reviewed: Yes Physical Exam-Cardiology Physical Exam Vital Signs/I&O 11/06/18 11/06/18 11/06/18 11/06/18 08:09 10:41 12:00 12:26 Temp 98.7 99.2 Pulse 107 103 98 Resp 18 20 B/P (MAP) 130/80 (97) 129/71 Pulse Ox 93 92 95 O2 Delivery Nasal Cannula Nasal Cannula Nasal Cannula O2 Flow Rate 1.50 3.00 3.00 11/06/18 11/06/18 11/06/18 12:32 12:39 13:09 Pulse 113 105 Pulse Ox 92 92 O2 Delivery Room Air FiO2 21 Capillary Refill : Less Than 3 Seconds Constitutional: AAO x 3, well-developed, well-nourished HEENT: PERRL, hearing is well preserved, oral hygience is good Neck: No carotid bruit; carotid pulses are 2 + bilaterally Respiratory: No accessory muscle use, No respiratory distress; chest expansion is symmetric, chest is bilaterally symmetric, other (coarse RLL) Cardiovascular: No JVD; tachycardia, S1 and S2, systolic murmur Gastrointestinal: No tender; soft, round, audible bowel sounds Rectal: deferred Extremities: no lower extremity edema bilateral Neurologic/Psychiatric: grossly intact, power is 5/5 both on sides Skin: No rash, No ulcerations Data Review Labs Laboratory Tests 11/05/18 23:07: Sodium Level 139, Potassium Level 4.2, Chloride Level 103, Carbon Dioxide Level 22, Anion Gap 14, Blood Urea Nitrogen 13, Creatinine 0.77, Estimat Glomerular Filtration Rate > 60, BUN/Creatinine Ratio 17, Glucose Level 119H, Calcium Level 8.7, Corrected Calcium 8.5, Total Bilirubin 1.2H, Aspartate Amino Transf ( AST/SGOT) 21, Alanine Aminotransferase (ALT/SGPT) 20, Alkaline Phosphatase 99, Troponin T 24H, Pro-B-Type Natriuretic Peptide 169.5H, Total Protein 7.3, Albumin 4.3 11/05/18 23:25: White Blood Count 9.3, Red Blood Count 5.54, Hemoglobin 15.5, Hematocrit 48, Mean Corpuscular Volume 87, Mean Corpuscular Hemoglobin 28, Mean Corpuscular Hemoglobin Concent 32, Red Cell Distribution Width 12.9, Platelet Count 188, Mean Platelet Volume 9.2, Prothrombin Time 23.7H, INR Comment 2.1H, Activated Partial Thromboplast Time 34 11/06/18 04:26: Troponin T 18H 11/06/18 07:50: Troponin I < 0.028 11/06/18 11:55: White Blood Count 7.9, Red Blood Count 5.33, Hemoglobin 15.2, Hematocrit 45, Mean Corpuscular Volume 85, Mean Corpuscular Hemoglobin 29, Mean Corpuscular Hemoglobin Concent 34, Red Cell Distribution Width 13.4, Platelet Count 188, Mean Platelet Volume 9.2, Neutrophils (%) (Auto) 88H, Lymphocytes (%) (Auto) 5L , Monocytes (%) (Auto) 8, Eosinophils (%) (Auto) 0, Basophils (%) (Auto) 0, Neutrophils # (Auto) 7.0, Lymphocytes # (Auto) 0.4L, Monocytes # (Auto) 0.6, Eosinophils # (Auto) 0.0, Basophils # (Auto) 0.0, Neutrophils % (Manual) 76, Lymphocytes % (Manual) 10, Monocytes % (Manual) 4, Eosinophils % (Manual) 1, Basophils % (Manual) 0, Band Neutrophils 9, Elliptocytes SLIGHT, Prothrombin Time 28.4H, INR Comment 2.7H, Sodium Level 135, Potassium Level 3.7, Chloride Level 102, Carbon Dioxide Level 22, Anion Gap 11, Blood Urea Nitrogen 11, Creatinine 0.81, Estimat Glomerular Filtration Rate > 60, BUN/Creatinine Ratio 14, Glucose Level 98, Calcium Level 9.6, Corrected Calcium 9.4, Total Bilirubin 0.7, Aspartate Amino Transf (AST/SGOT) 22, Alanine Aminotransferase (ALT/SGPT) 22, Alkaline Phosphatase 88, Troponin I 0.028, B-Type Natriuretic Peptide 55.5, Total Protein 7.3, Albumin 4.3 11/06/18 12:35: Blood Gas Puncture Site LEFT RADIAL, Blood Gas Patient Temperature 99.2, Arterial Blood pH 7.45H, Arterial Blood Partial Pressure CO2 35, Arterial Blood Partial Pressure O2 56L, Arterial Blood HCO3 24, Arterial Blood Total CO2 25.4, Arterial Blood Oxygen Saturation 92L, Arterial Blood Base Excess 0.8, Nick Test YES-POS, Blood Gas Ventilator Setting NO, Blood Gas Inspired Oxygen ROOM AIR 11/06/18 13:30: Troponin I < 0.028, Thyroid Stimulating Hormone (TSH) 0.90 Microbiology 11/06/18 Influenza Types A,B Antigen (TRUE) - Final, Complete A/P-Cardiology Assessment/Admission Diagnosis Dyspnea of undetermined etiology Sinus tach Elevated Trop T x [address] [facility] ED; troponin I at [facility] WNL CT of the chest on 11-06-18: Ectasia of the ascending aorta, which measures up to 4.2 cm in diameter H/O PE x 2 - first episode 11 years ago (completed one year of warfarin), second episode approx 4 years ago - has been maintained on warfarin since Chronic anticoagulation with warfarin - managed by his PCP HTN HLD - statin tx Discussion and Recomendations Echocardiogram today to eval structure and function Sinus tachycardia with HTN - add low dose BB Add low dose ASA Based on c/o, h/o and risk factors advise further coronary work up. Have discussed both non-invasive and invasive. We will proceed with MPI for ischemia eval (given h/o cor Ca on chest CT) Continue home medications Continue warfarin d/t h/o PE Monitor lab closely Further recs will be based on hospital course We would like to thank medical services for this consult I have spoken with he and his spouse and answered their questions Clinical Quality Measures DVT/VTE Risk/Contraindication: Risk Factor Score Per Nursin RFS Level Per Nursing on Admit: 4+=Very High NATALY HERNÁNDEZ MD FACP FACC CCDS Nov 06, 2018 19:00
[2018-11-06] MEDS: LISINOPRIL HCTZ PO SCH (20:28)
[2018-11-06] MEDS: LORATADINE (CLARITIN) 10 MG TAB PO SCH (20:29)
[2018-11-06] MEDS: SIMvastatin 20 MG (ZOCOR) TAB PO SCH (20:29)
[2018-11-06 20:35] VITALS: BP 111/58
[2018-11-06] MEDS ORDERED: NON-FORMULARY MEDICATION 1 EA EA (Cetirizine HCl 10 MG) PO SCH (21:00)
[2018-11-07] VITALS: BP 114/62
[2018-11-07 04:46] VITALS: BP 112/58
[2018-11-07 06:57] LABS: BASOPHILS % (AUTO) 0 % (0-10); EOSINOPHILS # (AUTO) 0.4 10^3/uL (0.0-0.3); EOSINOPHILS % (AUTO) 7 % (0-10); HEMATOCRIT 43 % (40-54); HEMOGLOBIN 13.9 G/DL (13.3-17.7); LYMPHOCYTES # (AUTO) 0.8 X 10^3 (1.0-4.0); LYMPHOCYTES % (AUTO) 13 % (12-44); MEAN CORPUSCULAR HEMOGLOBIN 28 PG (25-34); MEAN CORPUSCULAR HGB CONC 33 G/DL (32-36); MEAN CORPUSCULAR VOLUME 86 FL (80-99); MEAN PLATELET VOLUME 9.4 FL (7.4-10.4); MONOCYTES # (AUTO) 0.8 X 10^3 (0.0-1.0); MONOCYTES % (AUTO) 15 % (0-12); NEUTROPHILS # (AUTO) 3.6 X 10^3 (1.8-7.8); NEUTROPHILS % (AUTO) 65 % (42-75); PLATELET COUNT 180 10^3/uL (130-400); RED CELL DISTRIBUTION WIDTH 14.2 % (10.0-14.5); WHITE BLOOD COUNT 5.6 10^3/uL (4.3-11.0)
[2018-11-07 07:13] LABS: INR 2.9 (0.8-1.4); PROTHROMBIN TIME PATIENT 30.2 SEC (12.2-14.7)
--- NOTE | 2018-11-07 07:15 | NUR ---
DOWN FOR ROXY SCAN
[2018-11-07 07:19] LABS: ALANINE AMINOTRANSFERASE 22 U/L (0-55); ALBUMIN 3.8 GM/DL (3.2-4.5); ALKALINE PHOSPHATASE 77 U/L (40-136); BILIRUBIN,TOTAL 0.8 MG/DL (0.1-1.0); BUN/CREATININE RATIO 23; CALCIUM 8.5 MG/DL (8.5-10.1); CARBON DIOXIDE 23 MMOL/L (21-32); CHLORIDE 107 MMOL/L (98-107); CREATININE SERUM 0.82 MG/DL (0.60-1.30); GFR ESTIMATED > 60; GLUCOSE 98 MG/DL (70-105); POTASSIUM 3.9 MMOL/L (3.6-5.0); SODIUM 139 MMOL/L (135-145); TOTAL PROTEIN 6.2 GM/DL (6.4-8.2)
[2018-11-07 08:00] VITALS: BP 136/87
[2018-11-07] MEDS ORDERED: REGADENOSON 0.4 MG/5 ML SYR (LEXISCAN) IV ONE (08:05)
[2018-11-07] MEDS: NS IV 1000 ML 1,000 ML IV SCH (08:30)
--- NOTE | 2018-11-07 09:39 | Progress Note-Hospitalist ---
Subjective HPI/CC On Admission Date Seen by Provider: Nov 07, 2018 Time Seen by Provider: 13:00 Chief complaint: Shortness of breath and wheezing HPI: This is a 63yoWM with a prior history of pulmonary emboli with a large clot burden ten years ago and a saddle pulmonary emboli four years ago that had no genetic basis of hypercoagulable state who had seen Dr. Romero in [facility] and Luisa Prasad and had not established with a new PCP since that time. He reports that he presented to the [facility] ER with hypoxia and wheezing and was found to have major hypoxia and acute respiratory failure and there was a concern whether he had pneumonia vs. recurrent PE so CT scan was obtained revealing no evidence of any type of recurrent PE with INR of 2.1. He is requiring oxygen. He had not had any recent echocardiogram or cardiology evaluation or pulmonology evaluation due to the significant clot burden in the past with the pulmonary emboli. I will check ABG and consult with Dr. Simental and Dr. Olivo and obtain echocardiogram and evaluate from there the next step but he will likely need home O2 at DC and he was agreeable to that possibility. Family was updated on all the details as far as the future work up and other consultants. Subjective/Events-last exam Attempted to see him but he was in a stress test for 4 hrs Will attempt to see later today Will performed Home O2 evaluation Likely DC tomorrow Patient seen after EST Needs 3 liters of O2 at DC and uses [id number] Patient denies pain Cough is improved Review of Systems Pulmonary: Dyspnea, Cough Objective Exam Vital Signs Vital Signs Date Time Temp Pulse Resp B/P (MAP) Pulse Ox O2 Delivery O2 Flow Rate FiO2 11/07/18 16:05 98.2 64 20 107/68 (81) 94 Nasal Cannula 4.00 11/06/18 12:39 21 Capillary Refill : Less Than 3 Seconds General Appearance: WD/WN, Chronically ill, Mild Distress HEENT: PERRL/EOMI, Normal ENT Inspection, Pharynx Normal, Moist Mucous Membranes Neck: Full Range of Motion, Normal Inspection, Non Tender Respiratory: Chest Non Tender, Lungs Clear, Normal Breath Sounds, No Accessory Muscle Use, No Respiratory Distress, Wheezing (improved) Cardiovascular: Regular Rate, Rhythm, No Edema, No Gallop, No JVD, No Murmur, Normal Peripheral Pulses Gastrointestinal: Normal Bowel Sounds, No Organomegaly, No Pulsatile Mass, Non Tender, Soft Back: Normal Inspection, No CVA Tenderness, No Vertebral Tenderness Extremity: Normal Capillary Refill, Normal Inspection, Normal Range of Motion, Non Tender, No Calf Tenderness, No Pedal Edema Neurologic/Psychiatric: Alert, Oriented x3, No Motor/Sensory Deficits, Normal Mood/Affect Skin: Normal Color, Warm/Dry Lymphatic: No Adenopathy Results/Procedures Lab Laboratory Tests 11/07/18 06:48 Patient resulted labs reviewed. Assessment/Plan Assessment and Plan Assess & Plan/Chief Complaint Assessment: Respiratory insufficiency improved Wheezing Hypoxemia needs home O2 Recurrent PE's in past HTN Tachycardia Plan: O2 Nebs Pulmonology and Cardiology consultations are appreciated Coumadin to be maintained in meantime ECHO Diagnosis/Problems Diagnosis/Problems (1) Hypoxia Status: Acute (2) Elevated brain natriuretic peptide (BNP) level Status: Acute (3) Elevated troponin Status: Acute (4) Wheezing Status: Acute (5) Hx pulmonary embolism Status: Chronic (6) Hypertension Status: Chronic Qualifiers: Hypertension type: essential hypertension Qualified Codes: I10 - Essential (primary) hypertension Clinical Quality Measures DVT/VTE Risk/Contraindication: Risk Factor Score Per Nursin RFS Level Per Nursing on Admit: 4+=Very High KATHERINE REYNOSO DO Nov 07, 2018 09:39
--- NOTE | 2018-11-07 10:10 | NUR ---
RETURNED FROM ROXY SCAN, DENIES PAIN OR SOB, FAMILY AT BEDSIDE
[2018-11-07] MEDS: ASPIRIN 81 MG CHEW (CHILDREN'S ASA) PO SCH (10:23)
--- NOTE | 2018-11-07 10:41 | Progress Note-Cardiology ---
Cardiology SOAP Progress Note Subjective: No c/o CP or palpitations. Reports SOB better and occ lose cough. No c/o syncope or near syncope. Objective: I&O/Vital Signs 11/07/18 11/07/18 11/07/18 11/07/18 04:46 06:59 08:00 08:00 Temp 98.4 98.5 Pulse 76 88 87 Resp 16 18 B/P (MAP) 112/58 (76) 136/87 (103) Pulse Ox 92 92 O2 Delivery Nasal Cannula Nasal Cannula Nasal Cannula O2 Flow Rate 4.00 4.00 3.00 11/07/18 11/07/18 11/07/18 12:00 12:59 13:03 Temp 98.7 Pulse 65 67 Resp 18 B/P (MAP) 123/77 (92) Pulse Ox 97 92 O2 Delivery Nasal Cannula O2 Flow Rate 4.00 4.00 11/07/18 00:00 Intake Total 1760 ml Balance 1760 ml Weight (Pounds): 266 Weight (Calculated Kilograms): 120.451225 Constitutional: AAO x 3, well-developed, well-nourished Respiratory: No accessory muscle use, No respiratory distress; chest expansion is symmetric, chest is bilaterally symmetric, other (coarse RLL) Cardiovascular: regular rate-rhythm; No JVD; S1 and S2 Gastrointestional: No tender; soft, round, audible bowel sounds Extremities: no lower extremity edema bilateral Neurologic/Psychiatric: grossly intact, power is 5/5 both on sides Skin: No rash, No ulcerations Results/Procedures: Labs Laboratory Tests 11/07/18 06:45: Prothrombin Time 30.2H, INR Comment 2.9H 11/07/18 06:48: White Blood Count 5.6, Red Blood Count 4.92, Hemoglobin 13.9, Hematocrit 43, Mean Corpuscular Volume 86, Mean Corpuscular Hemoglobin 28, Mean Corpuscular Hemoglobin Concent 33, Red Cell Distribution Width 14.2, Platelet Count 180, Mean Platelet Volume 9.4, Neutrophils (%) (Auto) 65, Lymphocytes (%) (Auto) 13, Monocytes (%) (Auto) 15H, Eosinophils (%) (Auto) 7, Basophils (%) (Auto) 0, Neutrophils # (Auto) 3.6, Lymphocytes # (Auto) 0.8L, Monocytes # (Auto) 0.8, Eosinophils # (Auto) 0.4H, Basophils # (Auto) 0.0, Sodium Level 139, Potassium Level 3.9, Chloride Level 107, Carbon Dioxide Level 23, Anion Gap 9, Blood Urea Nitrogen 19H, Creatinine 0.82, Estimat Glomerular Filtration Rate > 60, BUN/ Creatinine Ratio 23, Glucose Level 98, Calcium Level 8.5, Corrected Calcium 8.7 , Total Bilirubin 0.8, Aspartate Amino Transf (AST/SGOT) 23, Alanine Aminotransferase (ALT/SGPT) 22, Alkaline Phosphatase 77, Total Protein 6.2L, Albumin 3.8 Microbiology 11/06/18 Influenza Types A,B Antigen (TRUE) - Final, Complete A/P: Assessment: Dyspnea, probably multifactorial (see below) Obesity with suspected obesity-hypoventilation syndrome H/o PE 11 years ago after which he was on supple oxygen for several years Sinus tach - resolved with addition of BB Mild diastolic dysfunction of LV. Echocardiogram of 11-06-18 showed LVEF 65-70%. Concentric hypertrophy. Grade 1 diastolic dysfunction. PASP 30mmHg MPI of 11-07-18: LVEF 48%, probable basal IMI w/o ischemia Elevated Trop T x 2 at [facility] ED; troponin I at [facility] WNL CT of the chest on 11-06-18: Ectasia of the ascending aorta, which measures up to 4.2 cm in diameter Chronic anticoagulation with warfarin - managed by his PCP HTN HLD - statin tx TSH - WNL (0.9) on lab of 11-07-18 Plan: Echocardiogram results reviewed Sinus tachycardia and BP improved with addition of BB Add low dose ASA MPI - pending Continue warfarin d/t h/o PE - INR therapeutic Monitor lab Physician Assessment Physician Assessment Shortness of breath somewhat improved. Remains apprehensive about CV issues No cp or palp or syncope Lungs: good bilat air entry, diminished at the bases Cor: reg Ext: no c/c/e A&R * As documented in our note above that I updated (italics) and as noted below * I had a long and detailed discussion with him and his and his daughter-in -law regarding his card issues * Based on our w/u, it seem reasonable to continue a conservative approach * Consider cath if symptoms worsen or if new symptoms or if he is remains apprehensive DEVAN HERNANDEZ Nov 07, 2018 10:41 NATALY HERNÁNDEZ MD FACP FAC CCDS Nov 07, 2018 15:34
[2018-11-07 12:00] VITALS: BP 123/77
--- NOTE | 2018-11-07 13:05 | NUR ---
home oxygen study pts spo2 dropped to 85% on room air at rest, placed pt back on 4lpm nasal cannula and spo2 stabalized at 92%. pt will require 4 lpm home o2 at all times
--- NOTE | 2018-11-07 13:27 | STRESS TEST ---
DATE OF SERVICE: 11/07/2018 RESTING AND POST REGADENOSON TECHNETIUM-99M TETROFOSMIN SPECT CT IMAGING ORDERING PHYSICIAN: Erica Beckman APRN. PRIMARY PHYSICIAN: Dr. Corrales. CLINICAL DIAGNOSIS: Shortness of breath, coronary artery disease identified on CT chest. Baseline images were carried out after injection of 9.69 mCi of technetium-99m Tetrofosmin. This was followed by 0.4 mg of Regadenoson and 30.9 mCi of technetium-99m Tetrofosmin for stress imaging. The electrocardiogram showed sinus rhythm at baseline. There is a right bundle branch block. The electrocardiogram did not change significantly with the Regadenoson infusion. The patient tolerated the procedure well. Review of images at rest and following stress indicates a predominantly fixed inferior perfusion defect. Gated images show basal inferior hypokinesis to akinesis. Left ventricular ejection fraction is calculated to be 48%. Left ventricular end diastolic volume is 81 mL. TID is absent (1.02). CONCLUSIONS: 1. The study is indicative of a basal inferior infarction without significant ischemia. 2. Basal inferior hypokinesis to akinesis. 3. Left ventricular ejection fraction is calculated to be 48%. Job ID: [id number] DocumentID: [id number] Dictated Date: 11/07/2018 13:11:16 Car Audio Installer Date: 11/07/2018 13:26:47 Dictated By: NATALY HERNÁNDEZ MD, MA, FACP, FACC,
--- NOTE | 2018-11-07 13:43 | NUR ---
DISCHARGE PLANNING: Patient has met qualifications for Oxygen at discharge. This RN has assisted [employer] in arranging for this need. Met with patient to go over choice form but they assert that they have used [facility] out of [place] in the past on a couple different occasions and they would like to use them again. Choice form signed and in chart. Referral sent to [facility].
[2018-11-07 16:05] VITALS: BP 107/68
--- NOTE | 2018-11-07 16:57 | Pulmonary Progress Note ---
Subjective Time Seen by a Provider: 16:00 Subjective/Events-last exam s/p stress test. . Sepsis Event Evaluation Height, Weight, BMI Height: 6'1.00" Weight: 266lbs. oz. 120.871173vv; BMI Method:Stated Exam Exam Vital Signs Date Time Temp Pulse Resp B/P (MAP) Pulse Ox O2 Delivery O2 Flow Rate FiO2 11/07/18 16:05 98.2 64 20 107/68 (81) 94 Nasal Cannula 4.00 11/07/18 13:03 92 4.00 11/07/18 12:59 67 11/07/18 12:00 98.7 65 18 123/77 (92) 97 Nasal Cannula 4.00 11/07/18 08:00 Nasal Cannula 3.00 11/07/18 08:00 98.5 87 18 136/87 (103) 92 Nasal Cannula 4.00 11/07/18 06:59 88 11/07/18 04:46 98.4 76 16 112/58 (76) 92 Nasal Cannula 4.00 11/07/18 01:00 68 11/07/18 00:00 98.8 93 18 114/62 (79) 91 Nasal Cannula 4.00 11/06/18 20:35 98.8 93 18 111/58 (75) 94 Nasal Cannula 4.00 11/06/18 20:00 Room Air 11/06/18 19:00 105 I & O 11/07/18 07:00 Intake Total 1760 ml Balance 1760 ml Height & Weight Height: 6'1.00" Weight: 266lbs. oz. 120.601206wi; BMI Method:Stated General Appearance: WD/WN, Chronically ill, Mild Distress HEENT: PERRL/EOMI, Normal ENT Inspection, Pharynx Normal, Moist Mucous Membranes Neck: Full Range of Motion, Normal Inspection, Non Tender Respiratory: Chest Non Tender, No Accessory Muscle Use, No Respiratory Distress , Crackles, Decreased Breath Sounds, Wheezing Cardiovascular: Regular Rate, Rhythm, No Edema, No Gallop, No JVD, No Murmur, Normal Peripheral Pulses Capillary Refill: Less Than 3 Seconds Gastrointestinal: non tender, soft Extremity: Normal Capillary Refill, Normal Inspection, Normal Range of Motion, Non Tender, No Calf Tenderness, No Pedal Edema Neurologic/Psychiatric: Alert, Oriented x3, No Motor/Sensory Deficits, Normal Mood/Affect Skin: Normal Color, Warm/Dry Lymphatic: No Adenopathy Results Lab Laboratory Tests 11/05/18 23:07 11/05/18 23:25 11/06/18 11:55 11/07/18 06:48 Assessment/Plan Assessment/Plan Hypoxia with hx of PE -OXygen -Check echo -Ct scan reviewed Sinus tach -stat EKG -Cardiology consulted -S/P stress test HAL JENKINS DO Nov 07, 2018 16:57
--- NOTE | 2018-11-07 17:00 | NUR ---
HOME OXYGEN DELIVERED TO ROOM
[2018-11-07] MEDS ORDERED: warFARin 2.5 MG (COUMADIN) TAB PO SCH (18:00)
[2018-11-07] MEDS: warFARin 5 MG (COUMADIN) TAB PO SCH (18:46)
[2018-11-07 19:35] VITALS: BP 111/72
[2018-11-07] MEDS: LORATADINE (CLARITIN) 10 MG TAB PO SCH (19:51)
[2018-11-07] MEDS: SIMvastatin 20 MG (ZOCOR) TAB PO SCH (19:51)
[2018-11-08 00:35] VITALS: BP 120/65
[2018-11-08 04:03] VITALS: BP 120/58
[2018-11-08] MEDS: NS IV 1000 ML 1,000 ML IV SCH (04:24)
[2018-11-08 06:10] LABS: BASOPHILS % (AUTO) 1 % (0-10); EOSINOPHILS # (AUTO) 0.4 10^3/uL (0.0-0.3); EOSINOPHILS % (AUTO) 10 % (0-10); HEMATOCRIT 41 % (40-54); HEMOGLOBIN 12.9 G/DL (13.3-17.7); LYMPHOCYTES # (AUTO) 0.8 X 10^3 (1.0-4.0); LYMPHOCYTES % (AUTO) 19 % (12-44); MEAN CORPUSCULAR HEMOGLOBIN 28 PG (25-34); MEAN CORPUSCULAR HGB CONC 32 G/DL (32-36); MEAN CORPUSCULAR VOLUME 88 FL (80-99); MEAN PLATELET VOLUME 9.8 FL (7.4-10.4); MONOCYTES # (AUTO) 0.6 X 10^3 (0.0-1.0); MONOCYTES % (AUTO) 16 % (0-12); NEUTROPHILS # (AUTO) 2.2 X 10^3 (1.8-7.8); NEUTROPHILS % (AUTO) 54 % (42-75); PLATELET COUNT 155 10^3/uL (130-400)
[2018-11-08 06:20] LABS: INR 2.3 (0.8-1.4); PROTHROMBIN TIME PATIENT 25.5 SEC (12.2-14.7)
--- NOTE | 2018-11-08 06:27 | Pulmonary Progress Note ---
Subjective Time Seen by a Provider: 13:04 Subjective/Events-last exam No complications noted Sepsis Event Evaluation Height, Weight, BMI Height: 6'1.00" Weight: 266lbs. oz. 120.752823ay; BMI Method:Stated Exam Exam Vital Signs Date Time Temp Pulse Resp B/P (MAP) Pulse Ox O2 Delivery O2 Flow Rate FiO2 11/08/18 04:03 97.7 68 18 120/58 (78) 94 Nasal Cannula 4.00 11/08/18 01:00 65 11/08/18 00:35 97.9 61 20 120/65 (83) 94 Nasal Cannula 4.00 11/07/18 23:00 Nasal Cannula 4.00 11/07/18 20:00 Nasal Cannula 3.00 11/07/18 19:35 97.1 83 20 111/72 (85) 93 Nasal Cannula 4.00 11/07/18 19:00 83 11/07/18 16:05 98.2 64 20 107/68 (81) 94 Nasal Cannula 4.00 11/07/18 13:03 92 4.00 11/07/18 12:59 67 11/07/18 12:00 98.7 65 18 123/77 (92) 97 Nasal Cannula 4.00 11/07/18 08:00 Nasal Cannula 3.00 11/07/18 08:00 98.5 87 18 136/87 (103) 92 Nasal Cannula 4.00 11/07/18 06:59 88 I & O 11/08/18 07:00 Intake Total 3300 ml Balance 3300 ml Height & Weight Height: 6'1.00" Weight: 266lbs. oz. 120.075962gx; BMI Method:Stated General Appearance: WD/WN, Chronically ill, Mild Distress HEENT: PERRL/EOMI, Normal ENT Inspection, Pharynx Normal, Moist Mucous Membranes Neck: Full Range of Motion, Normal Inspection, Non Tender Respiratory: Chest Non Tender, No Accessory Muscle Use, No Respiratory Distress , Crackles, Decreased Breath Sounds, Wheezing Cardiovascular: Regular Rate, Rhythm, No Edema, No Gallop, No JVD, No Murmur, Normal Peripheral Pulses Capillary Refill: Less Than 3 Seconds Gastrointestinal: non tender, soft Extremity: Normal Capillary Refill, Normal Inspection, Normal Range of Motion, Non Tender, No Calf Tenderness, No Pedal Edema Neurologic/Psychiatric: Alert, Oriented x3, No Motor/Sensory Deficits, Normal Mood/Affect Skin: Normal Color, Warm/Dry Lymphatic: No Adenopathy Results Lab Laboratory Tests 11/06/18 11:55 11/07/18 06:48 11/08/18 05:43 Assessment/Plan Assessment/Plan Hypoxia with hx of PE -OXygen -Ct scan reviewed Sinus tach -stat EKG -Cardiology consulted -S/P stress test HAL JENKINS DO Nov 08, 2018 06:27
[2018-11-08 06:34] LABS: ALANINE AMINOTRANSFERASE 19 U/L (0-55); ALBUMIN 3.4 GM/DL (3.2-4.5); ALKALINE PHOSPHATASE 68 U/L (40-136); BILIRUBIN,TOTAL 0.6 MG/DL (0.1-1.0); BUN/CREATININE RATIO 25; CALCIUM 8.1 MG/DL (8.5-10.1); CARBON DIOXIDE 22 MMOL/L (21-32); CHLORIDE 108 MMOL/L (98-107); CREATININE SERUM 0.75 MG/DL (0.60-1.30); GFR ESTIMATED > 60; GLUCOSE 91 MG/DL (70-105); POTASSIUM 4.1 MMOL/L (3.6-5.0); SODIUM 137 MMOL/L (135-145); TOTAL PROTEIN 5.7 GM/DL (6.4-8.2)
[2018-11-08 08:00] VITALS: BP 126/64
[2018-11-08] MEDS: ASPIRIN 81 MG CHEW (CHILDREN'S ASA) PO SCH (09:11)
[2018-11-08] MEDS: LISINOPRIL HCTZ PO SCH (09:11)
--- NOTE | 2018-11-08 10:07 | Progress Note-Cardiology ---
Cardiology SOAP Progress Note Objective: I&O/Vital Signs Weight (Pounds): 266 Weight (Calculated Kilograms): 120.128370 Constitutional: AAO x 3, well-developed, well-nourished Respiratory: chest expansion is symmetric, chest is bilaterally symmetric, other Cardiovascular: regular rate-rhythm, S1 and S2 Gastrointestional: soft, round, audible bowel sounds Extremities: no lower extremity edema bilateral Neurologic/Psychiatric: grossly intact, power is 5/5 both on sides Skin: No rash, No ulcerations Results/Procedures: Labs Microbiology 11/06/18 Influenza Types A,B Antigen (TRUE) - Final, Complete A/P: Assessment: Dyspnea, probably multifactorial (see below) Obesity with suspected obesity-hypoventilation syndrome H/o PE 11 years ago after which he was on supple oxygen for several years Sinus tach - resolved with addition of BB Mild diastolic dysfunction of LV. Echocardiogram of 11-06-18 showed LVEF 65-70%. Concentric hypertrophy. Grade 1 diastolic dysfunction. PASP 30mmHg MPI of 11-07-18: LVEF 48%, probable basal IMI w/o ischemia Elevated Trop T x 2 at [facility] ED; troponin I at [facility] WNL CT of the chest on 11-06-18: Ectasia of the ascending aorta, which measures up to 4.2 cm in diameter Chronic anticoagulation with warfarin - managed by his PCP HTN HLD - statin tx TSH - WNL (0.9) on lab of 11-07-18 Plan: Continue current medication regimen including low dose ASA and BB Advise out pt sleep studies - following with Dr. Olivo Continue warfarin d/t h/o PE - INR therapeutic Monitor lab DEVAN HERNANDEZ Nov 08, 2018 10:07
[2018-11-08] MEDS ORDERED: ASPI-999 PO (10:25)
[2018-11-08] MEDS ORDERED: METO-387 PO (10:25)
[2018-11-08] MEDS ORDERED: ALBU2.5V4 INH (11:57)
--- NOTE | 2018-11-08 11:58 | Discharge Summary-Hospitalist ---
Diagnosis/Chief Complaint Date of Admission Nov 06, 2018 at 06:48 Date of Discharge Discharge Date: Nov 08, 2018 Admission Diagnosis Assessment: Respiratory insufficiency Wheezing Hypoxemia Recurrent PE's in past HTN Tachycardia Plan: O2 Nebs Pulmonology and Cardiology consultations are appreciated Coumadin to be maintained in meantime ECHO Discharge Diagnosis (1) Hypoxia Status: Acute (2) Elevated brain natriuretic peptide (BNP) level Status: Acute (3) Elevated troponin Status: Acute (4) Wheezing Status: Acute (5) Hx pulmonary embolism Status: Chronic (6) Hypertension Status: Chronic Discharge Summary Discharge Physical Exam Allergies: Coded Allergies: No Known Drug Allergies (Unverified , 11/06/18) Vitals & I&Os Vital Signs Date Time Temp Pulse Resp B/P (MAP) Pulse Ox O2 Delivery O2 Flow Rate FiO2 11/08/18 13:30 84 18 126/64 93 Nasal Cannula 3.00 93 11/08/18 08:00 98.0 General Appearance: No Apparent Distress, WD/WN, Chronically ill Respiratory: Chest Non Tender, Normal Breath Sounds, No Accessory Muscle Use, No Respiratory Distress, Wheezing Cardiovascular: Regular Rate, Rhythm, No Edema, No Gallop, No JVD, No Murmur, Normal Peripheral Pulses Neurologic/Psychiatric: Alert, Oriented x3, No Motor/Sensory Deficits, Normal Mood/Affect Hospital Course Was the Problem List Reviewed?: Yes Hospital course: Patient was admitted after found in the ER to be hypoxic and wheezing and a concern for superimposed pulmonary embolism even though INR was 2.16 CT angiogram was reviewed and that showed no evidence of PE. Cardiology and pulmonology were both consulted echocardiogram reviewed and patient remained on oxygen supplementation along with breathing treatments. Overall he was deemed stable and continued anticoagulation throughout the entire hospital course was therapeutic and he was restarted all home medications and he was deemed stable for discharge and oxygen supplementation and will have close follow-up with cardiology primary care provider and pulmonology. Labs (last 24 hrs) Microbiology 11/06/18 Influenza Types A,B Antigen (TRUE) - Final, Complete Patient resulted labs reviewed. Pending Labs Discussion & Recommendations Discharge Planning: <30 minutes discharge planning Discharge Home Medications: Active Scripts Active Albuterol Sulfate 2.5 Mg/3 Ml Vial.neb 2.5 Mg INH QID Aspirin 81 Mg Tab.chew 81 Mg PO DAILY Metoprolol Succinate 25 Mg Tab.er.24h 25 Mg PO DAILY Reported Cetirizine HCl 10 Mg Tablet 10 Mg PO HS Simvastatin 20 Mg Tablet 20 Mg PO HS Lisinopril-Hctz 10-12.5 mg Tab (Lisinopril/Hydrochlorothiazide) 1 Each Tablet 0.5 Tab PO HS Warfarin Sodium 2.5 Mg Tablet 2.5 Mg PO SUTUTHSA@1800 TAKES 1/2 (5MG) TABLET Coumadin (Warfarin Sodium) 5 Mg Tablet 5 Mg PO MOWEFR@1800 Instructions to patient/family Please see electronic discharge instructions given to patient. Clinical Quality Measures DVT/VTE Risk/Contraindication: Risk Factor Score Per Nursin RFS Level Per Nursing on Admit: 4+=Very High Problem Qualifiers (1) Hypertension: Hypertension type: essential hypertension Qualified Codes: I10 - Essential ( primary) hypertension KATHERINE REYNOSO DO Nov 08, 2018 11:58
--- NOTE | 2018-11-08 12:46 | NUR ---
CM/SS, final discharge planning. DME: Home O2 with [facility] as earlier noted. Physician added nebulizer order today, updated agency who will deliver this item when doing the home O2 setup.
--- NOTE | 2018-11-08 13:00 | NUR ---
telemetry dc, iv dc, denies pain or sob, portable o2 here.
[2018-11-08 13:30] VITALS: BP 126/64
--- NOTE | 2018-11-08 13:30 | NUR ---
MAYELIN WOLF demonstrates understanding of discharge instructions and accurately returns instructions upon questioning. Copy of Post-Discharge Instructions and Medication Discharge Instructions given to patient. MAYELIN WOLF is able to manage continuing needs after discharge. Patients belongings returned to patient. Skin dry and intact; no breakdown noted. Patient discharged from [facility] on 11/08/18 at 1330 . MAYELIN WOLF left floor via w/c, accompanied by staff and family.
--- NOTE | 2018-11-12 15:09 | Physician Query Clarification ---
PQ-Conflicting Diagnosis Admission/Discharge Admission Date: Nov 06, 2018 at 06:48 Discharge Date: Nov 08, 2018 at 13:30 The medical record reflects the following clinical scenario: History/Risk Factors: Hypoxia with history of PE Respiratory insufficiency Obesity Clinical Findings:BMI 35.1, Respiratory insufficiency, wheezing, sinus tachycardia. Treatment: Nasal Cannula 4L, Low dose BB for sinus tachycardia with hypertension , Low dose ASA. Question: Do you agree with the impression of Dyspnea, probably multifactorial due to Obesity hypoventilation syndrome and sinus tachycardia per Dr. Simental? Please document a response below. PHYSICIAN RESPONSE Do you agree w/Consulting Dx?: Clinically undetermined In responding to this query, please exercise your independent professional judgment. The purpose of this communication is to more accurately reflect the complexity of your patients condition. The fact that a question is asked does not imply that any particular answer is desired or expected. Thank you for your timely response to this clarification. Requestors name: Jenny Hernandez [facility] Phone # ext [phone] or [phone] THIS PHYSICIAN QUERY FORM IS A PERMANENT PART OF THE MEDICAL RECORD JENNY HERNANDEZ Nov 12, 2018 15:09 KATHERINE REYNOSO DO Nov 12, 2018 21:06
--- NOTE | 2018-11-12 15:26 | Physician Query Clarification ---
PQ-Uncertain Diagnosis Admission/Discharge Admission Date: Nov 06, 2018 at 06:48 Discharge Date: Nov 08, 2018 at 13:30 The medical record reflects the following clinical scenario: History/Risk Factors: Presented to ED [facility] with major hypoxia and acute respiratory failure per your H&P. Clinical Findings: Triage- Pulse 116,Resp 22, Pulse ox 90%, audible wheezing, Blood gases pH 7.45, pO2 56, 02 sats 92%. Right before transport patient had persistent hypoxia in ED with SpO2 on RA down to 88% Hr 127, BP 117/70. Treatment:2 Albuterol nebulizer treatments, nasal cannula 2L up to 4L. Respiratory insufficiency and acute respiratory failure were both documented in H&P. Question: Is Acute respiratory failure a clinically valid diagnosis after study? [diagnosis] was documented in the [dates and type of documents] with no further documentation in the medical record. Please document a response below. PHYSICIAN RESPONSE Diagnosis clinically valid: Yes, Conditon resolved In responding to this query, please exercise your independent professional judgment. The purpose of this communication is to more accurately reflect the complexity of your patients condition. The fact that a question is asked does not imply that any particular answer is desired or expected. Thank you for your timely response to this clarification. Requestors name: Jenny Hernandez [facility] Phone # ext [phone] or [phone] THIS PHYSICIAN QUERY FORM IS A PERMANENT PART OF THE MEDICAL RECORD JENNY HERNANDEZ Nov 12, 2018 15:26 KATHERINE REYNOSO DO Nov 12, 2018 21:07
--- NOTE | 2018-11-13 10:13 | Physician Query Clarification ---
PQ-Intro New Diagnosis Admission/Discharge Admission Date: Nov 06, 2018 at 06:48 Discharge Date: Nov 08, 2018 at 13:30 The medical record reflects the following clinical scenario: History/Risk Factors: Acute respiratory failure with hypoxia History of PE Clinical Findings:Stress test: The study is indicative of a basal inferior infarction without significant ischemia. Basal inferior hypokinesis to akinesis. Left ventricular ejection fraction is calculated to be 48%. Elevated Troponin x 2 at [facility] ED; troponin at [facility] was within normal limits- 0.028. Treatment: Stress test, echo, Low dose ASA and BB. Question: What condition best reflects the above clinical scenario? Please document below. 1. please specify. 2. Other, with explanation of the clinical findings. 3. Clinically undetermined, no explanation for the clinical findings. PHYSICIAN RESPONSE What condition reflects above: Other, explanation/clinical finding Explanation of clincal finding Defer to Cardiology In responding to this query, please exercise your independent professional judgment. The purpose of this communication is to more accurately reflect the complexity of your patients condition. The fact that a question is asked does not imply that any particular answer is desired or expected. Thank you for your timely response to this clarification. Requestors name: Jenny Hernandez [facility] Phone # ext [phone] or [phone] THIS PHYSICIAN QUERY FORM IS A PERMANENT PART OF THE MEDICAL RECORD JENNY HERNANDEZ Nov 13, 2018 10:13 KATHERINE REYNOSO DO Nov 13, 2018 11:02
--- NOTE | 2018-11-19 07:30 | Physician Query Clarification ---
PQ-Intro New Diagnosis Admission/Discharge Admission Date: Nov 06, 2018 at 06:48 Discharge Date: Nov 08, 2018 at 13:30 The medical record reflects the following clinical scenario: History/Risk Factors: Acute respiratory failure with hypoxia Personal history of Pulmonary Embolism Clinical Findings:Mild troponin elevation in [facility] ED x 2. Tachycardia,(h/o cor Ca on chest CT)per your consult. Treatment:Low dose ASA and BB. Testing: Stress test and echo. Stress test: The study is indicative of a basal inferior infarction without significant ischemia. Basal inferior hypokinesis to akinesis. Left ventricular ejection fraction is calculated to be 48%.(See full report in EMR) Question: Should specified conditions or diagnoses be added after your review of test results? If so, are the conditions considered current or old? Please document below. 1. . All our diagnoses are listed in our last note 2. . 3. Other, with explanation of the clinical findings. 4. Clinically undetermined, no explanation for the clinical findings. PHYSICIAN RESPONSE What condition reflects above: 1 In responding to this query, please exercise your independent professional judgment. The purpose of this communication is to more accurately reflect the complexity of your patients condition. The fact that a question is asked does not imply that any particular answer is desired or expected. Thank you for your timely response to this clarification. Requestors name: Jenyn Hernandez [facility] Phone # ext [phone] or [phone] THIS PHYSICIAN QUERY FORM IS A PERMANENT PART OF THE MEDICAL RECORD JENNY HERNANDEZ Nov 19, 2018 07:30 NATALY HERNÁNDEZ MD [facility] Nov 25, 2018 10:19
== END 2018-11-08 13:30 | disposition home or self-care (01) | DRG 189 ==
LOC: ER FS 22:41 → 4TH 11-06 06:48
PROVIDERS: ADMIT Internal Medicine; ATTEND Internal Medicine
DX: J96.01 Acute respiratory failure with hypoxia (principal); Z86.711 Personal history of pulmonary embolism; E66.2 Morbid (severe) obesity with alveolar hypoventilation; R00.0 Tachycardia, unspecified; R79.89 Other specified abnormal findings of blood chemistry; J45.909 Unspecified asthma, uncomplicated; R09.82 Postnasal drip; J02.9 Acute pharyngitis, unspecified; I25.10 Atherosclerotic heart disease of native coronary artery without angina pectoris; I25.84 Coronary atherosclerosis due to calcified coronary lesion; I10 Essential (primary) hypertension; I77.811 Abdominal aortic ectasia; E78.5 Hyperlipidemia, unspecified; R05 Cough; Z68.35 Body mass index [BMI] 35.0-35.9, adult; Z79.01 Long term (current) use of anticoagulants
CPT/HCPCS: 36415; 36600; 71046; 71275; 78452; 80053; 82805; 83880; 84443; 84484; 85007; 85025; 85027; 85610; 85730; 87804; 93005; 93017; 93041; 93306; 94760; 94761; 96365; 96366

== ENCOUNTER 2018-12-03 08:57 | Day surgery (SDC) | payer BC ==
[2018-12-03] VITALS (16 sets, daily range): BP systolic 82–141; BP diastolic 68–88
[~2018-12-03] VITALS: Ht 185.4 cm; Wt 122.5 kg
[~2018-12-03 08:57] MED LIST: ALBU2.5V4 INH; ASPI-999 PO; CETI10TA17 PO; LISI1TAB6 PO; METO-387 PO; SIMV10TA3 PO; SIMV20TA3 PO; WARF2.5T82 PO; WARF5TAB PO
[2018-12-03] MEDS ORDERED: LIDOCAINE 1% INJ 20 ML 20 ML VIAL ONE (09:00)
[2018-12-03] MEDS ORDERED: NS IV 1000 ML 3,000 ML ONE (09:00)
[2018-12-03] MEDS ORDERED: HEParin 1000 UNIT/ML (10ML VIAL) FOR BOLUS ONE ×2 (09:00→12:33)
[2018-12-03] MEDS ORDERED: NS IV 1000 ML 1,000 ML IV SCH (09:03)
[2018-12-03 09:25] LABS: HEMOGLOBIN 15.4 G/DL (13.3-17.7); MEAN PLATELET VOLUME 9.5 FL (7.4-10.4); RED CELL DISTRIBUTION WIDTH 13.6 % (10.0-14.5); WHITE BLOOD COUNT 5.8 10^3/uL (4.3-11.0)
[2018-12-03 09:38] LABS: PROTHROMBIN TIME PATIENT 23.4 SEC (12.2-14.7)
[2018-12-03 09:46] LABS: ALANINE AMINOTRANSFERASE 21 U/L (0-55); ALBUMIN 4.3 GM/DL (3.2-4.5); ALKALINE PHOSPHATASE 94 U/L (40-136); BUN/CREATININE RATIO 20; CALCIUM 9.1 MG/DL (8.5-10.1); CARBON DIOXIDE 24 MMOL/L (21-32); CHLORIDE 105 MMOL/L (98-107); CHOLESTEROL 148 MG/DL (< 200); CREATININE SERUM 0.88 MG/DL (0.60-1.30); GFR ESTIMATED > 60; GLUCOSE 100 MG/DL (70-105); HDL CHOLESTEROL 37 MG/DL (40-60); POTASSIUM 3.9 MMOL/L (3.6-5.0); SODIUM 139 MMOL/L (135-145); TOTAL PROTEIN 7.3 GM/DL (6.4-8.2); TRIGLYCERIDES 110 MG/DL (<150); VLDL CHOLESTEROL 22 MG/DL (5-40)
[2018-12-03] MEDS ORDERED: fentaNYL INJECTION 100 MCG/2 ML AMP ONE (11:44)
[2018-12-03] MEDS ORDERED: MIDAZOLAM 5 MG/5 ML (VERSED) VIAL ONE (11:44)
--- NOTE | 2018-12-03 12:01 | Cardiac Procedure Note-CS/ASA ---
Pre-Procedure Note Pre-Op Procedure Note H&P Reviewed The H&P was reviewed, patient examined and no changes noted. Date H&P Reviewed: Dec 03, 2018 Time H&P Reviewed: 12:01 Conscious Sedation Pre-Proced Time 12:01 ASA Score 3 For ASA 3 and 4: Consider anesthesia and medical clearance. Also, for patients with a history of failed moderate sedation consider anesthesia. Airway Lungs Heart ASA score ASA 1: a normal healthy patient ASA 2: a patient with a mild systemic disease (mid diabetes, controlled hypertension, obesity ASA 3: a patient with a severe systemic disease that limits activity (angina , COPD, prior Myocardial infarction) ASA 4: a patient with an incapacitating disease that is a constant threat to life (CHF, renal failure) ASA 5: a moribund patient not expected to survive 24 hrs. (ruptured aneurysm) ASA 6: a declared brain- patient whose organs are being harvested. For emergent operations, add the letter E after the classification Mallampati Classification Grade 2 Sedation Plan Analgesia, Amnesia, Plan communicated to team members, Discussed options with patient/fam, Discussed risks with patient/fam The patient is an appropriate candidate to undergo the planned procedure, sedation, and anesthesia. The patient immediately re-assessed prior to indication. NATALY HERNÁNDEZ MD FACP FAC CCDS Dec 03, 2018 12:01
[2018-12-03] MEDS ORDERED: NITRO DRIP 25000 MCG/D5W 250 ML IV ONE (12:29)
[2018-12-03] MEDS ORDERED: ADENOSINE 3 MG/1 ML (ADENOSCAN) 30ML VIAL IV ONE ×3 (12:29→13:29)
[2018-12-03] MEDS ORDERED: EPTIFIBATIDE BOLUS 20 ML IV ONE (12:32)
[2018-12-03] MEDS ORDERED: CLOPIDOGREL 300 MG (PLAVIX) TABLET PO ONE (13:34)
[2018-12-03] MEDS ORDERED: ASPIRIN 81 MG CHEW (CHILDREN'S ASA) ONE (13:34)
--- NOTE | 2018-12-03 15:22 | CARDIAC CATHETERIZATION ---
DATE OF SERVICE: 12/03/2018 CARDIAC CATHETERIZATION AND CORONARY INTERVENTION REPORT INDICATIONS FOR PROCEDURE: The patient is a 63-year-old man with shortness of breath and coronary artery disease risk factors. On a CT scan of the chest, he was diagnosed with coronary artery disease, based on chronic calcification. A microperfusion imaging study showed basal inferior infarction and there was basal inferior hypokinesis. Left ventricular ejection fraction was 48%. Given all these data, cardiac catheterization was carried out today after having obtained an informed consent for cardiac catheterization and possible ad hoc coronary intervention. PROCEDURE: He was brought to the cardiac catheterization laboratory in a fasting state. The right groin was prepared and draped in the usual sterile fashion. Lidocaine 1% was used for local anesthesia. Modified Seldinger technique was used to advance a 5-Croatian sheath in the right femoral artery. A 5-Croatian JL4 catheter was used for left coronary angiography. A 5-Croatian JR4 catheter was used for right coronary angiography. A 5-Croatian pigtail catheter was used for left heart catheterization and left ventricular angiography. PERCUTANEOUS INTERVENTION TO THE RIGHT CORONARY ARTERY: Following completion of the diagnostic procedure, we carried out percutaneous intervention to the right coronary artery, which was exhibiting a roughly long 90% stenosis in its mid portion. We exchanged the sheath and wire for a 6-Croatian sheath. We used a 6-Croatian JR4 guide catheter to engage the right coronary artery. We advanced a Whisper medium support wire across the lesion and the tip was placed in the distal vessel. We carried out balloon angioplasty first with Emerge 2.5 x 20 mm balloon and then with Emerge 3.0 x 30 mm balloon. This reduced the stenosis from 90% to approximately 70%. Subsequently, we were able to advance a stent across the lesion. This was accomplished with a moderate difficulty because there was a proximal tortuosity. We were able to accomplish it with the help of a GuideLiner catheter. The stent was carefully positioned to cover the entire lesion. The stent was deployed at 14 atmospheres. Subsequent angiography revealed 0% residual stenosis at the previous site of 90% stenosis. Flow throughout the vessel was normal. FRACTIONAL FLOW RESERVE MEASUREMENT IN THE RAMUS INTERMEDIUS ARTERY: The ramus intermedius artery seemed to have approximately 50% to 60% ostial and proximal stenosis with some haziness. We carried out fractional flow reserve measurement. We used a 6-Croatian JL4.5 guide catheter. We advanced the pressure wire across the lesion and gave adenosine infusion 140 mcg per kilogram per minute for 2 minutes and 15 seconds. Fractional flow reserve was measured at 0.93, indicating hemodynamic non-significance. FRACTIONAL FLOW RESERVE MEASUREMENT IN THE PROXIMAL LEFT ANTERIOR DESCENDING ARTERY: The proximal left anterior descending artery was exhibiting approximately 50% proximal stenosis with haziness. We advanced the pressure wire across this lesion after it had been removed from the ramus intermedius. The tip of the wire was placed in the distal vessel. Adenosine 140 mcg per kilogram per minute was given for 2 minutes and 20 seconds. Fractional flow reserve was measured at 0.84, indicating hemodynamic non-significance. Following completion of these procedures, the diagnostic and interventional equipment was removed. Angiography of the right femoral artery had been carried out through the sheath at the beginning of the procedure. At the end of the procedure, Mynx was used to achieve hemostasis following sheath removal. The patient received 7500 units of intravenous heparin during the intervention procedure. A double bolus of Integrilin was given. At the end of the procedure, he received 600 mg of oral Plavix and 324 mg of oral aspirin. He tolerated the procedure well. HEMODYNAMICS: Left ventricular end-diastolic pressure following coronary angiography was 5 mmHg. There was no significant pressure gradient on pullback across the aortic valve. Ascending aortic pressure was 96/61 with a mean of 66 mmHg. LEFT VENTRICULAR ANGIOGRAPHY: Left ventricular angiography was carried out in the right anterior oblique projection. Global left ventricular systolic function appeared normal. Left ventricular ejection fraction is approximately 60%. CORONARY ANGIOGRAPHY: Coronary calcification was seen in the proximal coronary vessels. Left main coronary artery does not appear to have significant obstructive disease. Left anterior descending artery has 50% proximal stenosis, hemodynamically nonsignificant (fractional flow reserve 0.84). The ramus intermedius artery has a 50% to 60% ostial/proximal stenosis that is hemodynamically nonsignificant (fractional flow reserve is 0.93). Left circumflex artery does not exhibit significant disease. Right coronary artery had 90% mid vessel stenosis that we successfully stented with Alpine Xience 4.0 x 23 mm stent. CONCLUSIONS: 1. Coronary artery disease primarily consisting of 90% mid vessel stenosis of the right coronary artery that was successfully treated with stenting (Alpine Xience 4.0 x 23 mm). 2. The left anterior descending and the ramus intermedius arteries have moderate stenoses that are hemodynamically nonsignificant (based on fractional flow reserve measurements). 3. Well-preserved global left ventricular systolic function with ejection fraction approximately 60%. 4. Normal left ventricular end-diastolic pressure. DISCUSSION AND RECOMMENDATIONS: Dual antiplatelet therapy has been added to the regimen. The risk factor modification has been reviewed. He is being hospitalized for an overnight observation. Job ID: [id number] DocumentID: [id number] Dictated Date: 12/03/2018 14:01:53 Occupational Health Manager Date: 12/03/2018 15:22:09 Dictated By: NATALY HERNÁNDEZ MD, MA, FACP, FACC, MTDD
[2018-12-03] MEDS ORDERED: ACETAMINOPHEN 325 MG TABLET PO PRN (16:30)
[2018-12-03] MEDS ORDERED: PATIENT MAY USE OWN MEDS, ALL PO SCH (16:30)
[2018-12-03] MEDS: NS IV 1000 ML 1,000 ML IV SCH (17:04)
[2018-12-03] MEDS ORDERED: ceTIRizine 10 MG (ZyrTEC) TAB NON-FORMULARY PO SCH (21:00)
[2018-12-03] MEDS ORDERED: SIMvastatin 20 MG (ZOCOR) TAB PO SCH (21:00)
[2018-12-04] VITALS (7 sets, daily range): BP systolic 104–166; BP diastolic 58–91
[2018-12-04 03:56] LABS: HEMOGLOBIN 13.3 G/DL (13.3-17.7); MEAN PLATELET VOLUME 9.6 FL (7.4-10.4); RED CELL DISTRIBUTION WIDTH 13.9 % (10.0-14.5)
[2018-12-04 04:11] LABS: BUN/CREATININE RATIO 25; CALCIUM 8.4 MG/DL (8.5-10.1); CARBON DIOXIDE 20 MMOL/L (21-32); CHLORIDE 107 MMOL/L (98-107); CREATININE SERUM 0.79 MG/DL (0.60-1.30); GFR ESTIMATED > 60; GLUCOSE 103 MG/DL (70-105); POTASSIUM 3.8 MMOL/L (3.6-5.0); SODIUM 137 MMOL/L (135-145)
[2018-12-04] MEDS: NS IV 1000 ML 1,000 ML IV SCH (05:13)
--- NOTE | 2018-12-04 08:06 | Progress Note-Cardiology ---
Cardiology SOAP Progress Note Subjective: Sitting up in bed. Daughter and spouse at the bedside. He denies any c/o CP, dyspnea, palpitations, syncope or near syncope. C/O right groin tenderness. Objective: I&O/Vital Signs 12/04/18 12/04/18 12/04/18 12/04/18 02:00 04:00 04:00 07:00 Temp 98.5 Pulse 94 88 82 92 Resp 17 19 18 B/P (MAP) 105/75 (85) 112/74 (87) 109/71 (84) Pulse Ox 92 91 93 O2 Delivery Room Air Room Air Room Air 12/04/18 12/04/18 12/04/18 12/04/18 08:00 09:00 11:56 12:00 Temp 98.6 Pulse 87 97 Resp 19 13 B/P (MAP) 118/75 (89) 166/79 (108) Pulse Ox 91 94 93 O2 Delivery Room Air Room Air Room Air 12/04/18 12:32 Pulse 64 Resp 15 B/P (MAP) 132/58 Pulse Ox 94 O2 Delivery Room Air 12/04/18 00:00 Intake Total 150 ml Output Total 400 ml Balance -250 ml Weight (Pounds): 270 Weight (Ounces): 0.0 Weight (Calculated Kilograms): [phone] Side: right Groin site without hematoma: Yes Condition: DP/PT pulses palpable, extremity w/d/p Bruising: large amount of bruising Constitutional: AAO x 3, well-developed, well-nourished Respiratory: No accessory muscle use, No respiratory distress; chest expansion is symmetric, chest is bilaterally symmetric Cardiovascular: regular rate-rhythm; No JVD; S1 and S2 Gastrointestional: No tender; soft, round, audible bowel sounds Extremities: no lower extremity edema bilateral Neurologic/Psychiatric: oriented x 3, grossly intact Skin: No rash, No ulcerations Results/Procedures: Labs Laboratory Tests 12/04/18 03:27: White Blood Count 6.0, Red Blood Count 4.69, Hemoglobin 13.3, Hematocrit 40, Mean Corpuscular Volume 86, Mean Corpuscular Hemoglobin 28, Mean Corpuscular Hemoglobin Concent 33, Red Cell Distribution Width 13.9, Platelet Count 193, Mean Platelet Volume 9.6, Sodium Level 137, Potassium Level 3.8, Chloride Level 107, Carbon Dioxide Level 20L, Anion Gap 10, Blood Urea Nitrogen 20H, Creatinine 0.79, Estimat Glomerular Filtration Rate > 60, BUN/Creatinine Ratio 25, Glucose Level 103, Calcium Level 8.4L 12/04/18 09:33: Prothrombin Time 22.6H, INR Comment 1.9H Procedures S/P cardiac cath with successful intervention. Please refer to Dr. Simental's cardiac cath report of 12-03-18 for details. A/P: Assessment: Coronary artery disease. Card cath of 12-03-18 showed CAD primarily consisting of 90% mid vessel stenosis of the right coronary artery that was successfully treated with stenting (Alpine Xience 4.0 x 23 mm). The left anterior descending and the ramus intermedius arteries have moderate stenoses that are hemodynamically nonsignificant (based on fractional flow reserve measurements). Well-preserved global left ventricular systolic function with ejection fraction approximately 60%. Normal left ventricular end-diastolic pressure Post-cath R amado hematoma, stable MPI of 11-07-18: LVEF 48%, probable basal IMI w/o ischemia - subsequent cardiac cath as noted above Obesity with suspected obesity-hypoventilation syndrome H/o PE 11 and approx 4 years ago. He is on chronic warfarin therapy that is managed by his pcp Mild diastolic dysfunction of LV. Echocardiogram of 11-06-18 showed LVEF 65-70%. Concentric hypertrophy. Grade [address] PASP [address] of the chest on 11-06-18: Ectasia of the ascending aorta, which measures up to 4.2 cm in diameter Chronic anticoagulation with warfarin - managed by his PCP HTN HLD - statin tx TSH - WNL (0.9) on lab of 11-07-18 Plan: Has ambulated in the halls without difficulty this morning Right groin bruised, but soft and no discomfort Check INR this morning Resume home warfarin dose - follows with his his PCP for management Continue Plavix Give ASA today and tomorrow - then stop ASA, continue Plavix and warfarin - having him on all 3 medications will increase his risk of bleeding Continue all other medications F/U appt in 2 weeks or sooner if needed Physician Assessment Physician Assessment No cp or palp or syncope or shortness of breath or groin discomfort Lungs: clear Cor: reg Ext: no c/c/e. Large amount of bruising in R groin, no induration or tenderness , palpable distal pulses A&R * As documented in our note above that I updated (italics) and as noted below * I had a long discussion with him and his regarding cath findings, interventions undertaken, treatment changes, risk factor modification, and outpatient f/u DEVAN HERNANDEZ [facility] Dec 04, 2018 08:06 NATALY SIMENTAL MD [facility] Dec 04, 2018 13:21
[2018-12-04] MEDS ORDERED: ASPIRIN 81 MG CHEW (CHILDREN'S ASA) PO SCH (09:00)
[2018-12-04] MEDS ORDERED: CLOPIDOGREL 75 MG (PLAVIX) TABLET PO SCH (09:00)
[2018-12-04] MEDS ORDERED: CLOP75TA28 PO (09:07)
--- NOTE | 2018-12-04 09:10 | Discharge Inst-Cardiology ---
Discharge Inst-Cardiac Discharge Medications New Medications: Clopidogrel Bisulfate (Clopidogrel) 75 Mg Tablet 75 MG PO DAILY, #30 TAB 5 Refills Continued Medications: Cetirizine HCl (Cetirizine HCl) 10 Mg Tablet 10 MG PO HS, TAB Lisinopril/Hydrochlorothiazide (Lisinopril-Hctz 10-12.5 mg Tab) 1 Each Tablet 0.5 TAB PO HS, TAB Metoprolol Succinate (Metoprolol Succinate) 25 Mg Tab.er.24h 25 MG PO DAILY, #30 TAB 5 Refills Simvastatin (Simvastatin) 20 Mg Tablet 20 MG PO HS, TAB Warfarin Sodium (Coumadin) 5 Mg Tablet 5 MG PO MoWeFr@1800, TAB Warfarin Sodium (Warfarin Sodium) 2.5 Mg Tablet 2.5 MG PO SuTuThSa@1800, TAB TAKES 1/2 (5MG) TABLET Discontinued Medications: Aspirin (Aspirin) 81 Mg Tab.chew 81 MG PO DAILY, #30 TAB 5 Refills Patient Instructions Patient Instructions: Take aspirin 81 mg today and tomorrow then stop. Continue with Plavix and warfarin daily as ordered. Follow up appoint in 2 weeks with DEVAN Jane Dec 04, 2018 09:10
[2018-12-04 09:55] LABS: INR 1.9 (0.8-1.4); PROTHROMBIN TIME PATIENT 22.6 SEC (12.2-14.7)
== END 2018-12-04 12:54 | disposition home or self-care (01) ==
LOC: CATH 08:57 → ICU 14:24 → CATH 12-04 12:54
PROVIDERS: ATTEND Internal Medicine Cardiovascular Disease
DX: I25.10 Atherosclerotic heart disease of native coronary artery without angina pectoris (principal); I10 Essential (primary) hypertension; E78.5 Hyperlipidemia, unspecified; E66.9 Obesity, unspecified; Z68.35 Body mass index [BMI] 35.0-35.9, adult; Z79.01 Long term (current) use of anticoagulants; Z79.82 Long term (current) use of aspirin; Z79.899 Other long term (current) drug therapy
CPT/HCPCS: 36415; 80048; 80053; 80061; 85027; 85610; 85730; 87081; 93005; 93458

== ENCOUNTER → 2019-01-08 | Outpatient (CLI) | payer BC ==
[~2019-01-08] MED LIST changes: +CLOP75TA28 PO; +RT-ALBUTEROL SULF 2.5 MG/3 ML PRE-MIX VIAL INH ONE
== END ==
LOC: RT 08:32
PROVIDERS: ATTEND Nurse Practitioner Family
DX: I26.99 Other pulmonary embolism without acute cor pulmonale (principal); R09.02 Hypoxemia
CPT/HCPCS: 94060; 94726; 94729

== ENCOUNTER → 2019-08-06 | Outpatient (CLI) | payer BC ==
[~2019-08-06] MED LIST changes: +RT-ALBUTEROL SULF 2.5 MG/3 ML PRE-MIX VIAL ONE
== END ==
LOC: RT 13:26 → SLEEP 14:03 → RT 14:03
PROVIDERS: ATTEND Nurse Practitioner Family
DX: J44.9 Chronic obstructive pulmonary disease, unspecified (principal); G47.36 Sleep related hypoventilation in conditions classified elsewhere
CPT/HCPCS: 94060; 94726; 94729

== ENCOUNTER → 2020-04-12 | Outpatient (CLI) | payer MEDICARE, OTHER ==
[~2020-04-12] MED LIST changes: +LISI1TAB29 PO; -LISI1TAB6 PO; -METO-387 PO; +MTP25TSR PO; -RT-ALBUTEROL SULF 2.5 MG/3 ML PRE-MIX VIAL INH ONE; -RT-ALBUTEROL SULF 2.5 MG/3 ML PRE-MIX VIAL ONE; +SIMV10TA26 PO; -SIMV10TA3 PO; +SIMV20TA26 PO; -SIMV20TA3 PO; -WARF5TAB PO; +WARF5TAB2 PO
== END ==
LOC: LABNPT 06:49
PROVIDERS: ATTEND Nurse Practitioner Family
DX: Z01.812 Encounter for preprocedural laboratory examination (principal); Z20.828 Contact with and (suspected) exposure to other viral communicable diseases
CPT/HCPCS: 87635

== ENCOUNTER 2020-04-15 19:23 | Outpatient (CLI) | payer MEDICARE, OTHER | END 2020-04-16 05:33 | disposition home or self-care (01) | LOC: SLEEP 19:23 | PROVIDERS: ATTEND Nurse Practitioner Family | DX: G47.33 Obstructive sleep apnea (adult) (pediatric) (principal); G47.36 Sleep related hypoventilation in conditions classified elsewhere; J44.9 Chronic obstructive pulmonary disease, unspecified; J30.9 Allergic rhinitis, unspecified | CPT/HCPCS: 95811 ==

== ENCOUNTER → 2020-10-25 | Outpatient (CLI) | payer MEDICARE, OTHER ==
[~2020-10-25] MED LIST changes: -WARF2.5T82 PO; +WRF2.5T PO
== END ==
LOC: CARD 09:04
PROVIDERS: ATTEND Nurse Practitioner Family
DX: I25.10 Atherosclerotic heart disease of native coronary artery without angina pectoris (principal); I65.23 Occlusion and stenosis of bilateral carotid arteries; I10 Essential (primary) hypertension; I34.0 Nonrheumatic mitral (valve) insufficiency; G47.33 Obstructive sleep apnea (adult) (pediatric)
CPT/HCPCS: 93306

== ENCOUNTER → 2021-04-08 | Outpatient (CLI) | payer MEDICARE, OTHER ==
[~2021-04-08] MED LIST changes: +HOLD METFORMIN - RECEIVED CONTRAST 20 ML VIAL IV SCH; +IOHEXOL 350 MG/ML 100 ML (OMNIPAQUE 350) VIAL IV ONE; +NS 100 ML (IVPB) BAG IV ONE
[2021-04-08 11:07] LABS: CREATININE SERUM 0.8 MG/DL (0.60-1.30)
--- NOTE | 2021-04-08 11:53 | Diagnostic Imaging Report ---
PROCEDURE: CT angiography of the chest with contrast. TECHNIQUE: Multiple contiguous axial images were obtained through the chest after uneventful bolus administration of intravenous contrast. 3D reconstructed CTA MIP acquisitions were also performed. Auto Exposure Controls were utilized during the CT exam to meet ALARA standards for radiation dose reduction. INDICATION: Evaluate thoracic aortic aneurysm. Follow-up. COMPARISON: 11/06/2018. FINDINGS: Mild ectasia of the ascending thoracic aorta is again seen, measuring 4.0 cm on today's exam, previously measuring 4.2 cm. No periaortic inflammatory changes are seen. The heart is normal in size. There is no pericardial effusion. There is no axillary, mediastinal, or hilar adenopathy. The lungs demonstrate no consolidation, nodules, or other parenchymal abnormality. No pleural effusion is seen. Osseous structures appear normal. Limited views of the upper abdomen demonstrate no acute abnormalities. IMPRESSION: 1. Mild ectasia of the ascending thoracic aorta measuring 4.0 cm on today's exam, previously measuring 4.2 cm. No periaortic inflammatory changes to suggest impending rupture. Recommend follow-up as indicated. Dictated by: Dictated on workstation # [id number]
== END ==
LOC: CARD 11:45
PROVIDERS: ATTEND Nurse Practitioner Family
DX: I77.810 Thoracic aortic ectasia (principal); I25.10 Atherosclerotic heart disease of native coronary artery without angina pectoris
CPT/HCPCS: 36415; 71275; 82565; 84520

== ENCOUNTER → 2021-04-29 | Outpatient (CLI) | payer MEDICARE, OTHER ==
[~2021-04-29] MED LIST changes: +CATHETER FLUSH 10 ML SYR IV PRN; -HOLD METFORMIN - RECEIVED CONTRAST 20 ML VIAL IV SCH; -IOHEXOL 350 MG/ML 100 ML (OMNIPAQUE 350) VIAL IV ONE; -NS 100 ML (IVPB) BAG IV ONE; +REGADENOSON 0.4 MG/5 ML SYR (LEXISCAN) IV ONE
[2021-04-29 09:25] VITALS: BP 122/71
[2021-04-29 09:34] VITALS: BP 124/74
== END ==
LOC: CARD 08:00
PROVIDERS: ATTEND Nurse Practitioner Family
DX: I25.10 Atherosclerotic heart disease of native coronary artery without angina pectoris (principal); I71.2 Thoracic aortic aneurysm, without rupture
CPT/HCPCS: 78452; 93017; A9502

== ENCOUNTER 2021-05-24 08:00 | Day surgery (SDC) | payer MEDICARE, OTHER ==
[~2021-05-24] VITALS: Ht 185.4 cm; Wt 119.5 kg
[2021-05-24] VITALS (11 sets, daily range): BP systolic 115–144; BP diastolic 66–93
[2021-05-24 07:14] LABS: HEMATOCRIT 47 % (40-54); MEAN CORPUSCULAR HEMOGLOBIN 29 pg (25-34); MEAN CORPUSCULAR HGB CONC 32 g/dL (32-36); MEAN CORPUSCULAR VOLUME 90 fL (80-99); MEAN PLATELET VOLUME 9.4 fL (9.0-12.2); PLATELET COUNT 190 10^3/uL (130-400); WHITE BLOOD COUNT 4.8 10^3/uL (4.3-11.0)
[2021-05-24 07:26] LABS: INR 1.3 (0.8-1.4)
[2021-05-24 07:36] LABS: ALBUMIN 4.2 GM/DL (3.2-4.5); BILIRUBIN,TOTAL 1.2 MG/DL (0.1-1.0); CALCIUM 9.3 MG/DL (8.5-10.1); CREATININE SERUM 0.85 MG/DL (0.60-1.30); POTASSIUM 4.3 MMOL/L (3.6-5.0); TOTAL PROTEIN 7.3 GM/DL (6.4-8.2)
[~2021-05-24 08:00] MED LIST changes: -CATHETER FLUSH 10 ML SYR IV PRN; +FLUT1DIS26 IH; +HEParin (CATH LAB) 2,000 ML IV ONE; +LEVO25TA5 PO; +LIDOCAINE 1% INJ 20 ML 20 ML VIAL ONE; +METO50TA7 PO; +MONT10TA32 PO; +NS IV 1000 ML 1,000 ML IV SCH; +NS IV 1000 ML 1,000 ML ONE; -REGADENOSON 0.4 MG/5 ML SYR (LEXISCAN) IV ONE; +WARF-48 PO
[2021-05-24] MEDS ORDERED: fentaNYL INJ 100 MCG/2 ML AMP ONE (08:19)
[2021-05-24] MEDS ORDERED: MIDAZOLAM 5 MG/5 ML (VERSED) VIAL ONE (08:20)
[2021-05-24] MEDS ORDERED: ADENOSINE 90 MG/30 ML (ADENOSCAN) VIAL IV ONE (08:43)
[2021-05-24] MEDS ORDERED: HEParin 1000 UNIT/ML (10ML VIAL) FOR BOLUS ONE (08:43)
--- NOTE | 2021-05-24 09:12 | Cardiac Procedure Note-CS/ASA ---
Pre-Procedure Note Pre-Op Procedure Note H&P Reviewed The H&P was reviewed, patient examined and no changes noted. Date H&P Reviewed: May 24, 2021 Time H&P Reviewed: 08:30 Conscious Sedation Pre-Proced Time 08:30 ASA Score 3 For ASA 3 and 4: Consider anesthesia and medical clearance. Also, for patients with a history of failed moderate sedation consider anesthesia. Airway Lungs Heart ASA score ASA 1: a normal healthy patient ASA 2: a patient with a mild systemic disease (mid diabetes, controlled hypertension, obesity ASA 3: a patient with a severe systemic disease that limits activity (angina, COPD, prior Myocardial infarction) ASA 4: a patient with an incapacitating disease that is a constant threat to life (CHF, renal failure) ASA 5: a moribund patient not expected to survive 24 hrs. (ruptured aneurysm) ASA 6: a declared brain- patient whose organs are being harvested. For emergent operations, add the letter E after the classification Mallampati Classification Grade 2 Sedation Plan Analgesia, Amnesia, Plan communicated to team members, Discussed options with patient/fam, Discussed risks with patient/fam The patient is an appropriate candidate to undergo the planned procedure, sedation, and anesthesia. The patient immediately re-assessed prior to indication. NATALY HERNÁNDEZ MD FACP FAC CCDS May 24, 2021 09:12
--- NOTE | 2021-05-24 09:14 | Discharge Inst-Post CATH ---
Discharge Inst-CATH/EP Post Cardiac Cath/EP D/C Inst Follow Up/Plan F/u with Dr Simental in 2 weeks ACTIVITY * Go Home directly and rest. * Limit activity of the leg (or wrist if it was used) for 7 days including aerobics, swimming, jogging, bicycling, etc. * Restrict stair-climbing for 7 days if possible, if not, climb up with your n on-cath leg, then bring together on the same step. * Avoid lifting, pushing, pulling or excessive movement of the affected ex tremity for 7 days. * Customary sexual activity may be resumed after 2 days-use caution not to use a position that strains or causes pain to the affected extremity. * No driving for 24 hours. * NO SMOKING. * Avoid straining for bowel movements for 7 days. * Gentle walking on level ground is allowed. * Returning to work will depend on the type of procedure and the results. Your doctor will discuss this with you. CALL YOUR DOCTOR FOR ANY OF THE FOLLOWING: *If bleeding from the puncture site occurs- Apply gentle pressure to site with clean cloth and call your doctor or EMS. * If a knot or lump forms under the skin, increases in size, or causes pain. * If bruising appears to be worsening or moving further down your leg instead of disappearing. * Temperature above 101 F. CARE OF YOUR GROIN INCISION; * Bruising or purple discoloration of the skin near the puncture site is common. * You may shower only, no bathtub bathing for 5 days. Be careful to avoid slipping as your leg may feel stiff. * If a closure device was used on your femoral artery, please see the attached guide regarding care of the device and your leg. * Leave dressing on FOR 24 hours. CARE OF YOUR WRIST INCISION; * Bruising or purple discoloration of the skin near the puncture site is common. * You may shower. * DO NOT submerge wrist. * Leave dressing on FOR 24 hours. NATALY SIMENTAL MD FACP FAC [facility]S May 24, 2021 09:14
[2021-05-24] MEDS ORDERED: PATIENT MAY USE OWN MEDS, ALL PO SCH (09:15)
[2021-05-24] MEDS ORDERED: NS IV 1000 ML 1,000 ML IV SCH (09:15)
--- NOTE | 2021-05-24 09:15 | Discharge Inst-Cardiology ---
Discharge Inst-Cardiac Discharge Medications Continued Medications: Cetirizine HCl (Cetirizine HCl) 10 Mg Tablet 10 MG PO DAILY, TAB Clopidogrel Bisulfate (Clopidogrel) 75 Mg Tablet 75 MG PO DAILY, TAB Fluticasone/Salmeterol (Advair 250-50 Diskus) 1 Each Blst.w.dev 1 EACH IH BID Levothyroxine Sodium (Levothyroxine Sodium) 25 Mcg Tablet 25 MCG PO DAILY, TAB Metoprolol Succinate (Metoprolol Succinate) 50 Mg Tab.er.24h 50 MG PO DAILY, TAB Montelukast Sodium (Montelukast Sodium) 10 Mg Tablet 10 MG PO HS, TAB Simvastatin (Simvastatin) 20 Mg Tablet 20 MG PO DAILY, TAB Warfarin Sodium (Warfarin Sodium) 2.5 Mg Tablet 2.5 MG PO KNAPP,MO,,TH,FR,SA @1800, TAB TAKES 1/2 (5MG) TABLET Warfarin Sodium (Warfarin Sodium) 5 Mg Tablet 5 MG PO WED@1800, TAB NATAL[facility]NDEZ MD [facility] May 24, 2021 09:15
--- NOTE | 2021-05-24 11:36 | CARDIAC CATHETERIZATION ---
DATE OF SERVICE: 05/24/2021 CARDIAC CATHETERIZATION REPORT The patient is a 66-year-old gentleman who is known to have coronary artery disease and has had stenting of the right coronary artery in the past. He recently had a myocardial perfusion imaging study, which showed basal inferior infarction with small to moderate amount of spike-infarct ischemia. Given ischemia, cardiac catheterization was carried out after having obtained an informed consent. DESCRIPTION OF PROCEDURE: He was brought to the cardiac catheterization laboratory in a fasting state. Right groin was prepared and draped in the usual sterile fashion. Lidocaine 1% was used for local anesthesia. Modified Seldinger technique was used to advance a 5-Italian sheath in right femoral artery, 5-Italian JL4 catheter was used for left coronary angiography, 5-Italian JR4 catheter for right coronary angiography, 5-Italian pigtail catheter was used for left heart catheterization and left ventricular angiography. Subsequently, fractional flow reserve measurement was carried out in the left anterior descending artery and it is described below. FRACTIONAL FLOW RESERVE MEASUREMENT IN THE LEFT ANTERIOR DESCENDING: We used a 6-Italian JL4 catheter for this purpose. 6000 units of intravenous heparin were given. A pressure wire was advanced across the lesion in the proximal/mid left anterior descending artery and the tip was placed in the distal vessel. Adenosine was infused at 140 mcg per kilogram per minute for 2-1/2 minutes. Fractional flow reserve across the proximal/mid left anterior descending artery lesion was 0.86, indicating that it was hemodynamically nonsignificant. The equipment was removed. Angiography of the right femoral artery was carried out through the sheath. Mynx was used to achieve hemostasis. HEMODYNAMICS: Left ventricular end-diastolic pressure following coronary angiography was 16 mmHg. There is no significant pressure gradient across the aortic valve. CORONARY ANGIOGRAPHY: Left main coronary artery is free of significant disease. Left anterior descending artery has calcification in its proximal and mid portion along with an approximately 50% stenosis and fractional flow reserve across that is 0.86, indicating hemodynamic nonsignificance. The ramus intermedius artery has mild proximal disease. Left circumflex artery does not exhibit significant disease. Right coronary artery has a patent stent in its mid portion that is known to be Alpine Xience 4.0 x 23 mm that was placed in 2019. It did not show any significant in-stent restenosis. The right coronary artery is dominant and has diffuse mild to moderate plaque. LEFT VENTRICULAR ANGIOGRAPHY: Left ventricular angiography was carried out in the right anterior oblique projection. Global left ventricular systolic function is normal. No significant regional wall motion abnormality was seen in this view and left ventricular ejection fraction approximately 60%. CONCLUSIONS: 1. Mild to moderate coronary artery disease. There is a patent stent in the mid right coronary artery that is known to be Alpine Xience 4.0 x 23 mm that was placed in 12/2018. The left anterior descending artery has 50% mid vessel stenosis and fractional flow reserve across that is 0.86, indicating hemodynamic nonsignificance. 2. Left ventricular ejection fraction approximately 60%. 3. Left ventricular end-diastolic pressure approximately 16 mmHg. DISCUSSION AND RECOMMENDATIONS: Based on results of the study, it appears appropriate to continue a conservative approach. Current regimen is being continued. Outpatient followup is advised. Job ID: [id number] DocumentID: [id number] Dictated Date: 05/24/2021 09:22:39 Coating Supervisor Date: 05/24/2021 11:36:22 Dictated By: NATALY HERNÁNDEZ MD, MA, FACP, FACC,
== END 2021-05-24 12:40 | disposition home or self-care (01) ==
LOC: CATH 08:00
PROVIDERS: ATTEND Internal Medicine Cardiovascular Disease
DX: I25.10 Atherosclerotic heart disease of native coronary artery without angina pectoris (principal); G47.33 Obstructive sleep apnea (adult) (pediatric); E66.9 Obesity, unspecified; E78.2 Mixed hyperlipidemia; I10 Essential (primary) hypertension; I71.2 Thoracic aortic aneurysm, without rupture; I65.23 Occlusion and stenosis of bilateral carotid arteries; Z86.711 Personal history of pulmonary embolism; Z79.01 Long term (current) use of anticoagulants; Z99.89 Dependence on other enabling machines and devices; J44.9 Chronic obstructive pulmonary disease, unspecified; Z79.899 Other long term (current) drug therapy; Z79.890 Hormone replacement therapy; Z95.5 Presence of coronary angioplasty implant and graft; Z11.2 Encounter for screening for other bacterial diseases; Z68.34 Body mass index [BMI] 34.0-34.9, adult
CPT/HCPCS: 80053; 80061; 85027; 85610; 85730; 87081; 93458; 93571; C1760; C1769; C1894; 36415

== ENCOUNTER → 2023-07-30 | Outpatient (CLI) | payer MEDICARE, OTHER ==
[~2023-07-30] MED LIST changes: -HEParin (CATH LAB) 2,000 ML IV ONE; +HOLD METFORMIN - RECEIVED CONTRAST 20 ML VIAL IV SCH; +IOHEXOL 350 MG/ML 100 ML (OMNIPAQUE 350) VIAL IV ONE; -LIDOCAINE 1% INJ 20 ML 20 ML VIAL ONE; -LISI1TAB29 PO; +LISI1TAB44 PO; +MONT-40 PO; -MONT10TA32 PO; +NS 100 ML (IVPB) BAG IV ONE; -NS IV 1000 ML 1,000 ML IV SCH; -NS IV 1000 ML 1,000 ML ONE
[2023-07-30 12:19] LABS: CREATININE SERUM 0.85 MG/DL (0.60-1.30)
--- NOTE | 2023-07-30 13:43 | Diagnostic Imaging Report ---
PROCEDURE: CT angiography of the chest with contrast. TECHNIQUE: Multiple contiguous axial images were obtained through the chest after uneventful bolus administration of intravenous contrast. 3D reconstructed CTA MIP acquisitions were also performed. Auto Exposure Controls were utilized during the CT exam to meet ALARA standards for radiation dose reduction. DATE: July 30, 2023. INDICATION: 68-year-old male, history of valvular disease. Evaluation of the thoracic aorta. COMPARISON: CT angiography chest April 08, 2021. FINDINGS: There are coronary artery calcifications. The heart is not enlarged. There are additional areas of atherosclerotic disease. The thoracic aorta at the level of the aortic root measures 4.1 x 4.1 cm in diameter. The mid ascending thoracic aorta measures 4.0 x 4.0 cm in diameter. The proximal descending thoracic aorta measures 2.5 x 2.6 cm in diameter. The distal descending thoracic aorta is also normal in caliber. There is no evidence of an acute aortic injury or aortic dissection. The celiac axis, superior mesenteric artery, and both renal arteries are widely patent. There is no identified pulmonary embolus. The main pulmonary diameter is within normal limits. There is no identified pulmonary nodule or lung mass. There is no focal airspace consolidation. There is no pneumothorax or pleural effusion. There is an 8 mm low-attenuation lesion in the right lobe of the liver on axial image 128 which is too small to characterize. There is also a 6 mm low-attenuation lesion in the liver on axial image 102 which is too small to characterize. There are degenerative changes of the spine. There is no identified acute bony abnormality. IMPRESSION: Aneurysmal dilation of the thoracic aorta at the level of the aortic root and mid ascending aorta measuring up to maximally 4.1 x 4.1 cm in diameter at the level of the aortic root. This is unchanged since April 08, 2021. Dictated by: Dictated on workstation # [id number]
== END ==
LOC: CARD 11:16
PROVIDERS: ATTEND Nurse Practitioner Family
DX: I34.0 Nonrheumatic mitral (valve) insufficiency (principal); I25.10 Atherosclerotic heart disease of native coronary artery without angina pectoris; I71.20 Thoracic aortic aneurysm, without rupture, unspecified
CPT/HCPCS: 71275; 82565; C8929; 36415; 93306

== ENCOUNTER → 2023-07-31 | Outpatient (CLI) | payer MEDICARE, OTHER ==
[~2023-07-31] MED LIST changes: +CATHETER FLUSH 10 ML SYR IVP PRN; -HOLD METFORMIN - RECEIVED CONTRAST 20 ML VIAL IV SCH; -IOHEXOL 350 MG/ML 100 ML (OMNIPAQUE 350) VIAL IV ONE; -NS 100 ML (IVPB) BAG IV ONE; +REGADENOSON 0.4 MG/5 ML SYR IV ONE; +SIMV40TA25 PO
[2023-07-31 09:35] VITALS: BP 133/71
--- NOTE | 2023-08-02 11:05 | STRESS TEST ---
DATE OF SERVICE: 07/31/2023 RESTING AND POST REGADENOSON TECHNETIUM-99M TETROFOSMIN SPECT CT IMAGING ORDERING PHYSICIAN: Erica Beckman APRN. PRIMARY PHYSICIAN: Dr. Chace Romero. CLINICAL DIAGNOSIS: Coronary artery disease. Baseline images were carried out after injection of 10.36 mCi of technetium-99m tetrofosmin. This was followed by 0.4 mg regadenoson and 28.7 mCi of technetium-99m tetrofosmin for stress imaging. The electrocardiogram showed sinus rhythm with right bundle branch block. It did not change significantly with the regadenoson infusion. The patient tolerated the procedure well. Review of images at rest and following stress indicates a partially transient inferoapical perfusion defect. Gated images show well-preserved global left ventricular systolic function. There appears to be basal inferior hypokinesis. Left ventricular ejection fraction is calculated to be 65%. CONCLUSIONS: 1. Inferior infarction with a moderate degree of spike-infarct ischemia (SDS 13, SSS 21). 2. Basal inferior hypokinesis. 3. Well preserved global left ventricular systolic function with ejection fraction of 65%. Job ID: [id number] DocumentID: [id number] Dictated Date: 08/02/2023 09:28:23 [employer]ment Sewing Machine Operator Date: 08/02/2023 11:04:00 Dictated By: NATALY HERNÁNDEZ MD; DEMAR; DEBP; DEBC; JARED
== END ==
LOC: CARD 08:20
PROVIDERS: ATTEND Nurse Practitioner Family
DX: I25.10 Atherosclerotic heart disease of native coronary artery without angina pectoris (principal)
CPT/HCPCS: 78452; 93017; A9502

== ENCOUNTER 2023-08-07 08:47 | Day surgery (SDC) | payer MEDICARE, OTHER ==
[~2023-08-07] VITALS: Ht 185 cm; Wt 132.0 kg
[2023-08-07] VITALS (9 sets, daily range): BP systolic 93–161; BP diastolic 62–85
[~2023-08-07 08:47] MED LIST changes: -CATHETER FLUSH 10 ML SYR IVP PRN; -REGADENOSON 0.4 MG/5 ML SYR IV ONE; -SIMV40TA25 PO
[2023-08-07] MEDS ORDERED: NS IV 1000 ML 1,000 ML IV ONE (09:00)
[2023-08-07] MEDS ORDERED: LIDOCAINE 1% INJ 20 ML VIAL ONE (09:01)
[2023-08-07] MEDS ORDERED: HEParin (CATH LAB) 2,000 ML IV ONE (09:02)
[2023-08-07] MEDS ORDERED: NS IV 1000 ML 1,000 ML ONE (09:02)
[2023-08-07 09:16] LABS: HEMATOCRIT 48 % (40-54); MEAN CORPUSCULAR HEMOGLOBIN 29 pg (25-34); MEAN CORPUSCULAR HGB CONC 31 g/dL (32-36); MEAN CORPUSCULAR VOLUME 92 fL (80-99); MEAN PLATELET VOLUME 9.4 fL (9.0-12.2); PLATELET COUNT 168 10^3/uL (130-400); WHITE BLOOD COUNT 5.7 10^3/uL (4.3-11.0)
[2023-08-07] MEDS ORDERED: SIMV40TA25 PO (09:24)
[2023-08-07] MEDS ORDERED: MTP25TSR PO (09:24)
[2023-08-07] MEDS ORDERED: ASPI-999 PO (09:24)
[2023-08-07 09:27] LABS: INR 1.8 (0.8-1.4); PROTHROMBIN TIME PATIENT 22.1 SEC (12.2-14.7)
[2023-08-07 09:36] LABS: ALBUMIN 4.3 GM/DL (3.2-4.5); BILIRUBIN,TOTAL 0.9 MG/DL (0.1-1.0); CALCIUM 8.9 MG/DL (8.5-10.1); CREATININE SERUM 0.85 MG/DL (0.60-1.30); POTASSIUM 4.3 MMOL/L (3.6-5.0); TOTAL PROTEIN 7.3 GM/DL (6.4-8.2)
[2023-08-07] MEDS ORDERED: MIDAZOLAM INJ 5 MG/5 ML VIAL ONE (10:08)
[2023-08-07] MEDS ORDERED: fentaNYL INJECTION 100 MCG/2 ML VIAL ONE (10:08)
[2023-08-07] MEDS ORDERED: VERAPAMIL 5 MG/2 ML (CALAN) VIAL IV ONE (10:08)
[2023-08-07] MEDS ORDERED: DEXTROSE IV ONE (10:09)
[2023-08-07] MEDS ORDERED: NITROGLYCERIN IV ONE (10:09)
[2023-08-07] MEDS ORDERED: HEParin 1000 UNIT/ML (10ML VIAL) FOR BOLUS ONE (10:09)
--- NOTE | 2023-08-07 11:58 | Cardiac Procedure Note-CS/ASA ---
Pre-Procedure Note Pre-Op Procedure Note Date of Available H&P: Jun 28, 2023 Date H&P Reviewed: Aug 07, 2023 Time H&P Reviewed: 10:30 History & Physical: H&P Reviewed Changes from last HP Stress test positive for inferior ischemia in late Jul 2023 Moderate Sedation PreProcedure ASA Score 3 Airway Lungs Heart ASA score ASA 1: a normal healthy patient ASA 2: a patient with a mild systemic disease (mid diabetes, controlled hypertension, obesity ASA 3: a patient with a severe systemic disease that limits activity (angina, COPD, prior Myocardial infarction) ASA 4: a patient with an incapacitating disease that is a constant threat to life (CHF, renal failure) ASA 5: a moribund patient not expected to survive 24 hrs. (ruptured aneurysm) ASA 6: a declared brain- patient whose organs are being harvested. For emergent operations, add the letter E after the classification Mallampati Classification Grade 2 Sedation Plan Analgesia, Amnesia, Plan communicated to team members The patient is an appropriate candidate to undergo the planned procedure, sedation, and anesthesia. The patient immediately re-assessed prior to indication. NATALY HERNÁNDEZ MD FACP [facility] Aug 07, 2023 11:58
[2023-08-07] MEDS ORDERED: PATIENT MAY USE OWN MEDS, ALL PO SCH (12:00)
[2023-08-07] MEDS ORDERED: NS IV 1000 ML 1,000 ML IV SCH (12:00)
--- NOTE | 2023-08-07 12:04 | Discharge Inst-Cardiology ---
Discharge Inst-Cardiac Discharge Medications Continued Medications: Aspirin (Aspirin) 81 Mg Tab.chew 81 MG PO DAILY, TAB Cetirizine HCl (Cetirizine HCl) 10 Mg Tablet 10 MG PO DAILY, TAB Levothyroxine Sodium (Levothyroxine Sodium) 25 Mcg Tablet 25 MCG PO DAILY, TAB Metoprolol Succinate (Metoprolol Succinate) 25 Mg Tab.er.24h 25 MG PO DAILY, TAB Montelukast Sodium (Montelukast Sodium) 10 Mg Tablet 10 MG PO HS, TAB Simvastatin (Simvastatin) 40 Mg Tablet 40 MG PO HS, TAB Warfarin Sodium (Warfarin Sodium) 2.5 Mg Tablet 2.5 MG PO KNAPP,MO,TU,WE,FRI, TAB TAKES 1/2 (5MG) TABLET Warfarin Sodium (Warfarin Sodium) 5 Mg Tablet 5 MG PO SAPPHIRE,SUN, TAB NATALY HERNÁNDEZ MD FACP [facility] Aug 07, 2023 12:04
--- NOTE | 2023-08-07 12:05 | Discharge Inst-Post CATH ---
Discharge Inst-CATH/EP Post Cardiac Cath/EP D/C Inst Follow Up/Plan F/u with Dr Simental in 4-6 weeks ACTIVITY * Go Home directly and rest. * Limit activity of the leg (or wrist if it was used) for 7 days including aerobics, swimming, jogging, bicycling, etc. * Restrict stair-climbing for 7 days if possible, if not, climb up with your non-cath leg, then bring together on the same step. * Avoid lifting, pushing, pulling or excessive movement of the affected extremity for 7 days. * Customary sexual activity may be resumed after 2 days-use caution not to use a position that strains or causes pain to the affected extremity. * No driving for 24 hours. * NO SMOKING. * Avoid straining for bowel movements for 7 days. * Gentle walking on level ground is allowed. * Returning to work will depend on the type of procedure and the results. Your doctor will discuss this with you. CALL YOUR DOCTOR FOR ANY OF THE FOLLOWING: *If bleeding from the puncture site occurs- Apply gentle pressure to site with clean cloth and call your doctor or EMS. * If a knot or lump forms under the skin, increases in size, or causes pain. * If bruising appears to be worsening or moving further down your leg instead of disappearing. * Temperature above 101 F. CARE OF YOUR GROIN INCISION; * Bruising or purple discoloration of the skin near the puncture site is common. * You may shower only, no bathtub bathing for 5 days. Be careful to avoid slipping as your leg may feel stiff. * If a closure device was used on your femoral artery, please see the attached guide regarding care of the device and your leg. * Leave dressing on FOR 24 hours. CARE OF YOUR WRIST INCISION; * Bruising or purple discoloration of the skin near the puncture site is common. * You may shower. * DO NOT submerge wrist. * Leave dressing on FOR 24 hours. NATALY SIMENTAL MD [facility] Aug 07, 2023 12:05
--- NOTE | 2023-08-07 12:20 | Cardiac Cath Report ---
CARDIAC CATHETERIZATION DATE OF PROCEDURE: 08-07-23 INDICATION: CAD, abnormal stress test HISTORY: The patient is a 68 year old male with a h/o stenting or RCA and mod disease in LAD who had a stress test in Jul 2023 that was indicative of infero- apical ischemia PROCEDURES PERFORMED: 1. Cor angio; 2. LHC (no LV angio); 3. iFR of mid LAD PROCEDURE DESCRIPTION: After informed consent and in the fasting state, left heart catheterization was performed through the R radial artery utilizing a 6 [place] system by percutaneous approach. TIG for LCA, JR4 for RCA, pigtail for LHC, JL4 guide for iFR of LAD. All catheters were exchanged over a guidewire. HEMODYNAMICS: LVEDP 13 mmHg, no significant pressure gradient on pull back across the aortic valve CORONARY ANGIOGRAPHY: Cor calcium present Left main coronary artery: Ok Left anterior descending coronary artery: 50% mid-LAD Left circumflex coronary artery: Ok Right coronary artery: Dominant, patent stent in mid portion, diffuse mild to mod disease of RCA iFR: Guide 6F JL4 Omni iFR wire iFR across mid LAD lesion = 0.92 IMPRESSION: 1. Mild to mod CAD: LMCA w/o significant disease, LAD with approx 50% mid- vessel lesion with iFR 0.92, LCx w/o significant disease, RCA with a patent mid vessel stent and with diffuse mild to moderate plaque 2. LVED 13 mmHg Plan: Continue medical therapy and risk factor modification NATALY HERNÁNDEZ MD FACP [facility] Aug 07, 2023 12:20
== END 2023-08-07 14:30 | disposition home or self-care (01) ==
LOC: CATH 08:47 → SDC 12:18 → CATH 14:30
PROVIDERS: ATTEND Internal Medicine Cardiovascular Disease
DX: I25.10 Atherosclerotic heart disease of native coronary artery without angina pectoris (principal); E66.9 Obesity, unspecified; I10 Essential (primary) hypertension; R94.31 Abnormal electrocardiogram [ECG] [EKG]; G47.33 Obstructive sleep apnea (adult) (pediatric); E78.2 Mixed hyperlipidemia; I65.23 Occlusion and stenosis of bilateral carotid arteries; I34.0 Nonrheumatic mitral (valve) insufficiency; R00.1 Bradycardia, unspecified; Z95.5 Presence of coronary angioplasty implant and graft; Z68.38 Body mass index [BMI] 38.0-38.9, adult; Z86.711 Personal history of pulmonary embolism; Z79.899 Other long term (current) drug therapy
CPT/HCPCS: 80053; 80061; 85027; 85610; 85730; 87081; 93005; 93458; 93571; C1769 ×2; C1887; C1894; 36415